=== PATIENT | male | born 1935 | race Caucasian/White ===

== ENCOUNTER 2024-04-13 21:48 | Inpatient (IN) ==
--- NOTE | 2024-04-13 23:00 | CT Scan Report ---
Exam(s): CT HEAD Without Contrast EXAM: CT Head Without Intravenous Contrast CLINICAL HISTORY: Reason for exam: fall chi. TECHNIQUE: Axial computed tomography images of the head/brain without intravenous contrast. CTDI is 35.65 mGy and DLP is 1300.48 mGy-cm. Automated exposure control was utilized for the study. A dose lowering technique was utilized adhering to the principles of ALARA. COMPARISON: No relevant prior studies available. FINDINGS: Brain: No acute intracranial hemorrhage. There is decreased attenuation within the white matter.. Ventricles: There is prominence of the ventricular system with deepening the sulci consistent with cortical and central atrophy.. Bones: No skull fracture is seen.. Soft tissues: There is soft tissue swelling. There is subcutaneous emphysema. Sinuses: Unremarkable as visualized. No acute sinusitis. Mastoid air cells: Unremarkable as visualized. No mastoid effusion. IMPRESSION: Atrophy. Nonspecific white matter disease. Soft tissues: There is soft tissue swelling. There is subcutaneous emphysema. Electronically signed by: Carlos Will MD 04/13/24 22:59 PM
--- NOTE | 2024-04-13 23:08 | CT Scan Report ---
Exam(s): CT FACIAL Without Contrast EXAM: CT Maxillofacial Without Intravenous Contrast CLINICAL HISTORY: Reason for exam: fall chi. TECHNIQUE: Axial computed tomography images of the face without intravenous contrast. CTDI is 35.65 mGy and DLP is 1300.48 mGy-cm. Automated exposure control was utilized for the study. A dose lowering technique was utilized adhering to the principles of ALARA. COMPARISON: No relevant prior studies available. FINDINGS: Bones/joints: There are comminuted fractures through anterior, lateral and medial gunderson of the right maxillary sinus. There are fractures noted of the medial and lateral gunderson of the left maxillary sinus. There are fractures noted through the anterior gunderson of the frontal sinuses. There are fractures through the medial gunderson of the orbits. There is a fracture of the floor of the right orbit. There is a fracture of the nasal septum. There is a fracture of the left pterygoid plate. Orbits: There are some intraorbital emphysema bilaterally. Soft tissues: There is soft tissue swelling. There is subcutaneous emphysema Sinuses: There are air-fluid levels noted in the maxillary sinuses. There is partial opacification of the ethmoid and frontal sinuses. These findings appear related to hemorrhage. IMPRESSION: There are fractures of the facial bones, as described above. Electronically signed by: Carlos Will MD 04/13/24 23:07 PM
[2024-04-13] MEDS: MoRPHine SULFATE 4 MG/ML 1 ML CARP\\VIAL IV STA (23:22)
--- NOTE | 2024-04-13 23:22 | CT Scan Report ---
Exam(s): CT C SPINE EXAM: CT Cervical Spine Without Intravenous Contrast CLINICAL HISTORY: Reason for exam: fall chi. TECHNIQUE: Axial computed tomography images of the cervical spine without intravenous contrast. CTDI is 35.65 mGy and DLP is 1300.48 mGy-cm. Automated exposure control was utilized for the study. A dose lowering technique was utilized adhering to the principles of ALARA. COMPARISON: No relevant prior studies available. FINDINGS: Vertebrae: There is straightening of the normal cervical lordosis. No acute fracture. There are hypertrophic degenerative changes with degenerative posterior osteophytes. There is a fusion noted at C5-6. There is a partial fusion noted at C3-4. There is osteopenia. Discs/spinal canal/neural foramina: There is diffuse disc space narrowing. No significant disc protrusion is seen. Soft tissues: Unremarkable. IMPRESSION: Straightening of the normal cervical lordosis. Hypertrophic degenerative changes with osteopenia. If further evaluation is clinically necessary, consider correlation with MRI. Electronically signed by: Carlos Will MD 04/13/24 23:21 PM
[2024-04-13] MEDS: ONDANSETRON INJ 2 MG/ML 2 ML VIAL IV STA (23:24)
[2024-04-13] MEDS: SODIUM CHLORIDE 0.9% 1,000 ML IV SCH (23:38)
[2024-04-13] MEDS: AMPICILLIN/SULBACTAM SOD 3,000 MG/100 ML BAG IV STA (23:38)
--- NOTE | 2024-04-13 23:42 | Emergency Department Note ---
History of Present Illness General Chief complaint: Fall Stated complaint: GLF, Facial Injuries, Jaw Pain, Nose Pain Time Seen by Provider: 04/13/24 22:14 History of Present Illness Provider Complaint: + accidental head injury and + fall Onset (ago): minute(s) (75) Mechanism of Injury: + fall Place: + outdoors Loss of Consciousness: + no Location of injury: + frontal Severity: moderate Maximum Pain Intensity: 7 Current Pain Intensity: 7 Quality: + dull, + aching and + throbbing Radiation: + face Other Injuries: + laceration to face Context: no on aspirin, no on warfarin, no on plavix, no other anticoagulant use or no recent alcohol use Associated symptoms: no confusion, no amnesia, no repetitive questioning, no nausea, no vomiting or no numbness Home Medications Medication Instructions Recorded Confirmed Type candesartan 8 mg tablet 8 mg PO BID 07/01/23 04/14/24 History hydrochlorothiazide 12.5 mg capsule 12.5 mg PO QAM 07/01/23 04/14/24 History atorvastatin 10 mg tablet 10 mg PO HS 11/24/23 04/14/24 History cholecalciferol (vitamin D3) 50 50 mcg PO Q2D 11/24/23 04/14/24 History mcg (2,000 unit) tablet (Vitamin D3) coenzyme Q10 100 mg capsule 100 mg PO Q2D 11/24/23 04/14/24 History (CoQ-10) cyanocobalamin (vitamin B-12) 1,000 mcg PO Q2D 11/24/23 04/14/24 History 1,000 mcg tablet (Vitamin B-12) lutein 20 mg-zeaxanthin 1,000 mcg 1 cap PO Q2D 11/24/23 04/14/24 History capsule magnesium 250 mg tablet 250 mg PO Q2D 11/24/23 04/14/24 History pyridoxine (vitamin B6) 100 mg 100 mg PO Q2D 11/24/23 04/14/24 History tablet (Vitamin B-6) vit C 250 mg-vit E 90 mg-zinc 40 1 tab PO BID 11/24/23 04/14/24 History mg-copper 1 [id number] capsule (PreserVision AREDS-2) ondansetron HCl 8 mg tablet 8 mg PO Q8H PRN nausea and 12/10/23 04/14/24 Rx vomiting #10 tabs acetaminophen 325 mg tablet 325 mg PO UD PRN Pain 01/19/24 04/14/24 History (Tylenol) tamsulosin 0.4 mg capsule (Flomax) 0.4 mg PO QAM 01/19/24 04/14/24 History Allergies Allergy/AdvReac Type Severity Reaction Status Date / Time No Known Allergies Allergy Verified 04/14/24 00:13 Past Med/Surg History Problem List (Updated 04/13/24 @ 23:48 by Noe Schroeder MD) Extensive facial fractures (Acute) H/O right inguinal hernia repair (01/21/24) Right Open Inguinal Hernia Repair with Mesh(Right) - Chilo Paez, Incarcerated right inguinal hernia 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 Paez prior to upcoming procedure on 01/21/24 - pt was ordered Flomax. Neuropathy HTN (hypertension) History of COVID-19 11/2021: mild symptoms, resolved 07/2023 (home test): cough, treated with Paxlovid > symptoms resolved Macular degeneration "stable" Hyperlipidemia Osteoarthritis Cervical pain Mild- full rom Sciatic leg pain Paresthesia of bilateral legs have neuropathy per pt Bradycardia Chronic, baseline HR mid 50s per patient Surgical History Hx of oral surgery (12/10/23) p Right Lower Jaw Excision of Exposed Necrotic Bone(Not Applicable) - Jorge Cruz DMD s Excision/Biopsy of Intense Leukoplakia, Extraction of Teeth #30, 31(Not Applicable) - Jorge Cruz DMD healed per pt History of tonsillectomy History of tooth extraction H/O colonoscopy History of laminectomy Lumbar (Dr. Casillas/Tony) Family History Father Heart disease Mother Stroke Hypertension Other No family history of adverse response to anesthesia Social History Smoking Status: Never smoker Second Hand Exposure: No; Do You Dip or Chew Tobacco: No; Hx Alcohol Use: Yes Alcohol type: wine Alcohol Intake Frequency: 2-4 x/Month Hx Substance Use: No Preferred Language: Filipino Communication Ability: Effective Visual Impairment: No Limitations Plumbing Engineer Required: No Beliefs That Will Affect Care: None marital status: Current Living Situation: Spouse and Other Current Living Situation Comment: [facility] How many Children do You have: 0 Feels Safe at Home: Yes Diet: regular during the past year weight has: remained stable Assistive Devices: None Physical Exam 2 Vital Signs: Vital Signs - 24 hr 04/13/24 21:54 04/13/24 23:00 04/13/24 23:11 Temperature 36.7 C Temperature Source Oral Pulse Rate 83 Pulse Rate [Finger ] 75 Respiratory Rate 17 18 Blood Pressure 153/86 H Blood Pressure [Ri ght Arm] 172/78 H Blood Pressure Vicki n 108 Blood Pressure Vicki n [Right Arm] 109 Pulse Oximetry 92 94 Oxygen Delivery Me thod Room Air Room Air Room Air Sepsis Recent Feve r Within 48 Hours No Sepsis New/Unexpla ined Change in Men higinio Status N/A Sepsis Action Take n by Nursing No Action Required 04/14/24 00:00 Temperature Temperature Source Pulse Rate Pulse Rate [Finger ] 86 Respiratory Rate 16 Blood Pressure Blood Pressure [Ri ght Arm] 167/114 H Blood Pressure Vicki n Blood Pressure Vicki n [Right Arm] 131 Pulse Oximetry 92 Oxygen Delivery Me thod Room Air Sepsis Recent Feve r Within 48 Hours Sepsis New/Unexpla ined Change in Men higinio Status Sepsis Action Take n by Nursing Physical Exam: Physical Exam HENT: Exam performed. - Head: Deformity of his nose laceration to the face swelling of his face. - Mouth/Throat: The oropharynx is clear and moist. No trismus in the jaw. No dental abscesses or uvula swelling. No oropharyngeal exudate or tonsillar abscesses. EYES: Conjunctivae and EOM are normal. Pupils are equal, round, and reactive to light. Right eye exhibits no discharge. Left eye exhibits no discharge. No scleral icterus. Periorbital ecchymosis bilaterally. NECK: Normal range of motion. Neck supple. No JVD present. No spinous process tenderness present. CV: Normal rate, regular rhythm, normal heart sounds and intact distal pulses. There is no peripheral edema. Palpable radial pulses bue. PULM/CHEST: Effort normal and breath sounds normal. No respiratory distress. No stridor. He has no wheezes. He has no rales. - Chest Wall: He exhibits no tenderness. No crepitus bilaterally. ABD: The abdomen is soft.There is no tenderness. There is no rebound, no guarding. MUSC/SKEL: Pelvis stable. No pain on palpation of the pelvis. NEURO: He is alert and oriented to person, place, and time. He has normal strength. No cranial nerve deficit or sensory deficit. Coordination and gait normal. GCS eye subscore is 4. GCS verbal subscore is 5. GCS motor subscore is 6. Cerebellar tests wnl. Course Course 2214: The patient was evaluated in room C1. A complete history and physical exam was performed Cardiac monitoring: An order was placed for continuous cardiac monitoring. The monitor shows a rate of 70 with sinus rhythm interpreted by [place] [id number]: Vital signs stable. CT of the head unremarkable. CT of the facial bones shows extensive maxillary fractures. Discussed the case with Dr. Cruz. He recommends admission to the medicine team IV antibiotics and states he will evaluate the patient in the morning. Patient be admitted to the medicine team. Administered Medications Sodium Chloride (Nss) 1,000 mls @ 80 mls/hr IV .[id number] [facility] Stop: 05/13/24 23:14 Last Admin: 04/13/24 23:38 Dose: 80 mls/hr Documented By: NAVYA Discontinued Medications Gelatin (Gelatin Sponge 12-7mm) Confirm Administered Dose 1 each .ROUTE .STK-MED ONE Stop: 04/14/24 00:16 Last Admin: 04/14/24 00:35 Dose: 1 each Documented By: NAVYA Hydromorphone HCl (Hydromorphone Inj 0.5 Mg/0.5 Ml Syr) 0.5 mg IV NOW STA Stop: 04/13/24 23:44 Last Admin: 04/14/24 00:09 Dose: 0.5 mg Documented By: NAVYA Ampicillin Sodium/Sulbactam Sodium (Unasyn) 3,000 mg in 100 mls @ 200 mls/hr IV NOW STA Stop: 04/13/24 23:39 Last Infusion: 04/14/24 00:08 Dose: Infused Documented By: Admin: 04/13/24 23:38 Dose: 200 mls/hr Documented By: NAVYA Morphine Sulfate (Morphine Sulfate 4 Mg/Ml 1 Ml Carp\\Vial) 2 mg IV NOW STA Stop: 04/13/24 23:11 Last Admin: 04/13/24 23:22 Dose: 2 mg Documented By: NAVYA Ondansetron HCl (Ondansetron Inj 2 Mg/Ml 2 Ml Vial) 4 mg IV NOW STA Stop: 04/13/24 23:11 Last Admin: 04/13/24 23:24 Dose: 4 mg Documented By: NAVYA Medical Decision Making Laboratory Data Attestation: I reviewed the patient's lab results. 04/13/24 23:27 04/13/24 23:27 Lab Results 04/13/24 Range/Units 23:27 WBC 9.24 (4.8-10.8) K/ul RBC 4.03 L (4.70-6.10) M/uL Hgb 12.7 L (14.0-18.0) g/dl Hct 37.3 L (42.0-52.0) % MCV 92.6 (80.0-100.0) fL MCH 31.5 (25.0-34.0) pg MCHC 34.0 (32.0-36.0) g/dL RDW Std Deviation 41.9 (36.4-46.3) fL RDW Coeff of Tom 12.2 (11.5-14.5) % Plt Count 180 (130-400) K/uL MPV 10.1 (9.4-12.4) fL Immature Gran % (Auto) 0.3 % Neut % (Auto) 81.2 % Lymph % (Auto) 7.4 % [place] % (Auto) 10.1 % Eos % (Auto) 0.8 % Baso % (Auto) 0.2 % Neut # (Auto) 7.51 H (1.40-6.50) K/uL Lymph # (Auto) 0.68 L (1.20-3.40) K/uL [place] # (Auto) 0.93 H (0.11-0.59) K/uL Eos # (Auto) 0.07 (0.00-0.50) K/uL Baso # (Auto) 0.02 (0.00-0.20) K/uL Immature Gran # (Auto) 0.03 (0.01-0.20) K/uL PT 10.9 (9.0-12.0) Seconds INR 1.0 (0.9-1.1) APTT 24 (21-31) Seconds PTT Ratio 0.9 Sodium 137 (136-145) mmol/L Potassium 3.8 (3.5-5.1) mmol/L Chloride 102 (98-107) mmol/L Carbon Dioxide 28 (21-32) mmol/L Anion Gap 7 (3-11) BUN 30 H (6-23) mg/dl Creatinine 1.00 (0.6-1.4) mg/dl Est Cr Clr Drug Dosing 53.0 ml/min Est GFR ( Amer) 78.6 ml/min Est GFR (Non-Af Amer) 67.8 ml/min BUN/Creatinine Ratio 30.0 H (10-20) Glucose 136 H (70-99(Fasting)) mg/dl Calcium 9.1 (8.6-10.3) mg/dl Imaging Data Radiologist's Impression: Cervical Spine CT 04/13/24 22:18 Exam(s): CT C SPINE EXAM: CT Cervical Spine Without Intravenous Contrast CLINICAL HISTORY: Reason for exam: fall chi. TECHNIQUE: Axial computed tomography images of the cervical spine without intravenous contrast. CTDI is 35.65 mGy and DLP is 1300.48 mGy-cm. Automated exposure control was utilized for the study. A dose lowering technique was utilized adhering to the principles of ALARA. COMPARISON: No relevant prior studies available. FINDINGS: Vertebrae: There is straightening of the normal cervical lordosis. No acute fracture. There are hypertrophic degenerative changes with degenerative posterior osteophytes. There is a fusion noted at C5-6. There is a partial fusion noted at C3-4. There is osteopenia. Discs/spinal canal/neural foramina: There is diffuse disc space narrowing. No significant disc protrusion is seen. Soft tissues: Unremarkable. IMPRESSION: Straightening of the normal cervical lordosis. Hypertrophic degenerative changes with osteopenia. If further evaluation is clinically necessary, consider correlation with MRI. Electronically signed by: Carlos Will MD 04/13/24 23:[address] 04/13/24 22:18 Exam(s): CT FACIAL Without Contrast EXAM: CT Maxillofacial Without Intravenous Contrast CLINICAL HISTORY: Reason for exam: fall chi. TECHNIQUE: Axial computed tomography images of the face without intravenous contrast. CTDI is 35.65 mGy and DLP is 1300.48 mGy-cm. Automated exposure control was utilized for the study. A dose lowering technique was utilized adhering to the principles of ALARA. COMPARISON: No relevant prior studies available. FINDINGS: Bones/joints: There are comminuted fractures through anterior, lateral and medial gunderson of the right maxillary sinus. There are fractures noted of the medial and lateral gunderson of the left maxillary sinus. There are fractures noted through the anterior gunderson of the frontal sinuses. There are fractures through the medial gunderson of the orbits. There is a fracture of the floor of the right orbit. There is a fracture of the nasal septum. There is a fracture of the left pterygoid plate. Orbits: There are some intraorbital emphysema bilaterally. Soft tissues: There is soft tissue swelling. There is subcutaneous emphysema Sinuses: There are air-fluid levels noted in the maxillary sinuses. There is partial opacification of the ethmoid and frontal sinuses. These findings appear related to hemorrhage. IMPRESSION: There are fractures of the facial bones, as described above. Electronically signed by: Carlos Will MD 04/13/24 23:[address] 04/13/24 22:18 Exam(s): CT HEAD Without Contrast EXAM: CT Head Without Intravenous Contrast CLINICAL HISTORY: Reason for exam: fall chi. TECHNIQUE: Axial computed tomography images of the head/brain without intravenous contrast. CTDI is 35.65 mGy and DLP is 1300.48 mGy-cm. Automated exposure control was utilized for the study. A dose lowering technique was utilized adhering to the principles of ALARA. COMPARISON: No relevant prior studies available. FINDINGS: Brain: No acute intracranial hemorrhage. There is decreased attenuation within the white matter.. Ventricles: There is prominence of the ventricular system with deepening the sulci consistent with cortical and central atrophy.. Bones: No skull fracture is seen.. Soft tissues: There is soft tissue swelling. There is subcutaneous emphysema. Sinuses: Unremarkable as visualized. No acute sinusitis. Mastoid air cells: Unremarkable as visualized. No mastoid effusion. IMPRESSION: Atrophy. Nonspecific white matter disease. Soft tissues: There is soft tissue swelling. There is subcutaneous emphysema. Electronically signed by: Carlos Will MD 04/13/24 22:59 PM [facility] Narrative 2214: The patient was evaluated in room C1. A complete history and physical exam was performed Cardiac monitoring: An order was placed for continuous cardiac monitoring. The monitor shows a rate of 70 with sinus rhythm interpreted by [place] [id number]: Vital signs stable. CT of the head unremarkable. CT of the facial bones shows extensive maxillary fractures. Discussed the case with Dr. Cruz. He recommends admission to the medicine team IV antibiotics and states he will evaluate the patient in the morning. Patient be admitted to the medicine team. Impression & Plan Extensive facial fractures Discharge Plan Visit Data Chief Complaint: Fall Stated Complaint: GLF, Facial Injuries, Jaw Pain, Nose Pain ED Provider: Noe Schroeder Discharge Problem: Extensive facial fractures Patient Disposition: Admitted As Inpatient Forms Stand Alone Forms: [facility] Prescriptions Prescriptions: No Action ondansetron HCl 8 mg tablet 8 mg PO Q8H PRN (Reason: nausea and vomiting) Qty: 10 0RF hydrochlorothiazide 12.5 mg capsule 12.5 mg PO QAM candesartan 8 mg tablet 8 mg PO BID tamsulosin [Flomax] 0.4 mg capsule 0.4 mg PO QAM acetaminophen [Tylenol] 325 mg Tablet 325 mg PO UD PRN (Reason: Pain) atorvastatin 10 mg Tablet 10 mg PO HS cyanocobalamin (vitamin B-12) [Vitamin B-12] 1,000 mcg Tablet 1,000 mcg PO Q2D magnesium 250 mg Tablet 250 mg PO Q2D pyridoxine (vitamin B6) [Vitamin B-6] 100 mg Tablet 100 mg PO Q2D coenzyme Q10 [CoQ-10] 100 mg Capsule 100 mg PO Q2D cholecalciferol (vitamin D3) [Vitamin D3] 50 mcg (2,000 unit) Tablet 50 mcg PO Q2D PreserVision AREDS-2 250-90-40-1 mg Capsule 1 tab PO BID lutein-zeaxanthin 20 mg- 1,000 mcg Capsule 1 cap PO Q2D Referrals Referrals: Fernanda Atkinson [Primary Care Provider] - Discharge Problem: Extensive facial fractures Qualifiers: Encounter type: initial encounter Fracture type: open Qualified Code(s): S 02.92XB - Unspecified fracture of facial bones, initial encounter for open fracture
[2024-04-13 23:51] LABS: Basophils # (auto) 0.02 K/uL (0.00-0.20); Basophils % (auto) 0.2 %; Eosinophils # (auto) 0.07 K/uL (0.00-0.50); Eosinophils % (auto) 0.8 %; Hematocrit (blood only) 37.3 % (42.0-52.0); Hemoglobin 12.7 g/dl (14.0-18.0); Immature Granulocytes # (auto) 0.03 K/uL (0.01-0.20); Immature Granulocytes % (auto) 0.3 %; Lymphocytes # (auto) 0.68 K/uL (1.20-3.40); Lymphocytes % (auto) 7.4 %; Mean Corpuscular Hemoglobin 31.5 pg (25.0-34.0); Mean Corpuscular Volume 92.6 fL (80.0-100.0); Mean Platelet Volume 10.1 fL (9.4-12.4); Monocytes # (auto) 0.93 K/uL (0.11-0.59); Monocytes % (auto) 10.1 %; Neutrophils # (auto) 7.51 K/uL (1.40-6.50); Neutrophils % (auto) 81.2 %; Platelet Count 180 K/uL (130-400); RDW Coefficient of Variation 12.2 % (11.5-14.5); RDW Standard Deviation 41.9 fL (36.4-46.3); Red Blood Count 4.03 M/uL (4.70-6.10); White Blood Count 9.24 K/ul (4.8-10.8)
[2024-04-14 00:07] LABS: Calcium 9.1 mg/dl (8.6-10.3); Est GFR (African American) 78.6 ml/min; Est GFR (Non-African American) 67.8 ml/min; Potassium 3.8 mmol/L (3.5-5.1)
[2024-04-14] MEDS: HYDROmorphone INJ 0.5 MG/0.5 ML SYR IV STA (00:09)
--- NOTE | 2024-04-14 00:09 | History & Physical Report ---
Date of Service April 14, 2024 Assessment & Plan (1) Extensive facial fractures: Plan: - Extensive facial fracture - No airway compromise at present - Dr. Cruz to see patient qAM - plan to continue Unasyn - ice - Tylenol IV 1000mg prn - noted desaturations with opioids -> give cautiously moving forward - NPO -> would not tolerate PO with extensive swelling, also pending surgery eval - continue NSS @80ml/hr while NPO (2) Hypoxia: Plan: - noted after opioid administration - spO2 to high 80s-> quickly recovering to 90s - challenging supplementation oxygen options due to extension facial fracture-> spO2 in the 90s now but reached out to RT to consider options if continued desaturations (3) Hypertension: Plan: - Unable to tolerate PO - home blood pressure medications held - blood pressure is currently well controlled, but if needed would consider adding prn hydralazine (4) Anemia: Plan: - Hgb= 12.7, baseline of 13 - some blood loss with epistaxis-> no acute hemorrhage - add type and screen, plan to trend Hgb Plan Code: Full Diet: NPO VTE Prophylaxis: SCD, concern for acute bleeding/possible surgery hold chemical Dispo:Tele History of Present Illness Primary Care Provider: [facility] 88 year old male with a past medical history of HTN, Arthritis presenting with facial fracture after fall. Was walking and tripped on curb. Denies LOC. Not on any blood thinners. Denies lightheadedness/dizziness prior to fall. In independent living at [facility]. Notes pain and swelling in face. Denies swelling in throat. Epistaxis has improved. ED Course significant for: Head CT without acute intracranial pathology.CT Cervical spine without acute pathology. CT face with extensive facial fractures. ED spoke with Dr. Cruz who will see the patient in the morning- was started on unasyn. Allergies Allergy/AdvReac Type Severity Reaction Status Date / Time No Known Allergies Allergy Verified 04/14/24 00:13 Home Medications Medication Instructions Recorded Confirmed Type candesartan 8 mg tablet 8 mg PO BID 07/01/23 04/14/24 History hydrochlorothiazide 12.5 mg capsule 12.5 mg PO QAM 07/01/23 04/14/24 History atorvastatin 10 mg tablet 10 mg PO HS 11/24/23 04/14/24 History cholecalciferol (vitamin D3) 50 50 mcg PO Q2D 11/24/23 04/14/24 History mcg (2,000 unit) tablet (Vitamin D3) coenzyme Q10 100 mg capsule 100 mg PO Q2D 11/24/23 04/14/24 History (CoQ-10) cyanocobalamin (vitamin B-12) 1,000 mcg PO Q2D 11/24/23 04/14/24 History 1,000 mcg tablet (Vitamin B-12) lutein 20 mg-zeaxanthin 1,000 mcg 1 cap PO Q2D 11/24/23 04/14/24 History capsule magnesium 250 mg tablet 250 mg PO Q2D 11/24/23 04/14/24 History pyridoxine (vitamin B6) 100 mg 100 mg PO Q2D 11/24/23 04/14/24 History tablet (Vitamin B-6) vit C 250 mg-vit E 90 mg-zinc 40 1 tab PO BID 11/24/23 04/14/24 History mg-copper 1 [id number] capsule (PreserVision AREDS-2) ondansetron HCl 8 mg tablet 8 mg PO Q8H PRN nausea and 12/10/23 04/14/24 Rx vomiting #10 tabs acetaminophen 325 mg tablet 325 mg PO UD PRN Pain 01/19/24 04/14/24 History (Tylenol) tamsulosin 0.4 mg capsule (Flomax) 0.4 mg PO QAM 01/19/24 04/14/24 History Past Med/Surg History Problem List (Updated 04/14/24 @ 02:19 by Buffy De Guzman DO) Anemia Hypoxia Extensive facial fractures (Acute) H/O right inguinal hernia repair (01/21/24) Right Open Inguinal Hernia Repair with Mesh(Right) - Chilo Paez DO Incarcerated right inguinal hernia 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 Paez prior to upcoming procedure on 01/21/24 - pt was ordered Flomax. Neuropathy HTN (hypertension) History of COVID-19 11/2021: mild symptoms, resolved 07/2023 (home test): cough, treated with Paxlovid > symptoms resolved Macular degeneration "stable" Hyperlipidemia Osteoarthritis Cervical pain Mild- full rom Sciatic leg pain Paresthesia of bilateral legs have neuropathy per pt Bradycardia Chronic, baseline HR mid 50s per patient Surgical History Hx of oral surgery (12/10/23) p Right Lower Jaw Excision of Exposed Necrotic Bone(Not Applicable) - Jorge Cruz DMD s Excision/Biopsy of Intense Leukoplakia, Extraction of Teeth #30, 31(Not Applicable) - Jorge Cruz DMD healed per pt History of tonsillectomy History of tooth extraction H/O colonoscopy History of laminectomy Lumbar (Dr. Casillas/Tony) Family History Father Heart disease Mother Stroke Hypertension Other No family history of adverse response to anesthesia Social History Smoking Status: Never smoker Second Hand Exposure: No; Do You Dip or Chew Tobacco: No; Hx Alcohol Use: Yes Alcohol type: wine Alcohol Intake Frequency: 2-4 x/Month Hx Substance Use: No Preferred Language: Spanish Communication Ability: Effective Visual Impairment: No Limitations Excavator Operator Required: No Beliefs That Will Affect Care: None marital status: Current Living Situation: Spouse and Other Current Living Situation Comment: [facility] How many Children do You have: 0 Feels Safe at Home: Yes Diet: regular during the past year weight has: remained stable Assistive Devices: None Review of Systems Review of Systems: As per above Physical Exam Physical Exam: Constitutional:no acute distress HEENT: Extensive facial swelling CV: regular rhythm, no murmur appreciated, extremities well-perfused Resp: CTABL, no wheezes/rales/rhonchi appreciated, no increased work of breathing MSK: no gross deformities appreciated Skin: warm, dry, no rash appreciated Neuro: alert, oriented, no focal neurologic deficit appreciated Results & Data Results & Data Vital Signs (Past 12 Hours) Vital Signs Temp Pulse Pulse Resp BP BP Pulse Ox 04/14/24 00:00 86 16 167/114 H 92 04/13/24 23:11 04/13/24 23:00 75 18 172/78 H 94 04/13/24 21:54 36.7 C 83 17 153/86 H 92 O2 Del Method 04/14/24 00:00 Room Air 04/13/24 23:11 Room Air 04/13/24 23:00 Room Air 04/13/24 21:54 Room Air Supervising Physician Co-Signing Physician Notes Attending addendum: I have physically seen this patient, have supervised the medical residents activities, and agree with the H&P unless as otherwise noted. Assessment and Plan: Multiple facial fractures/status post ground-level fall- N.p.o. Unasyn 3 g IV every 6 hours Acetaminophen 1 g IV every 8 hours as needed for mild pain or fever Given Dilaudid 0.5 mg IV with improved pain control, but did transiently decrease oxygen saturation NSS at 80 mL/h Consult oral maxillofacial surgery Dr. Cruz Hypoxia- Initially occurred after opiate administration Transiently decreased to upper 80s, with rebound to mid 90s Considerations to use of mask if remain comfortable with facial fractures, versus humidified high flow Hypertension- NPO Hold candesartan, HCTZ Hydralazine 10 mg IV every 4 hours as needed for systolic blood pressure greater than 160 Anemia- Hemoglobin 12.7, with base 13.6 Some blood loss via epistaxis Type and screen ordered, but not likely to the transfusion Follow serially Resident Activity Tracking Resident Involvement: Resident Care Provided Care Provided: Adult Hospital Medicine (1) Extensive facial fractures Encounter type: initial encounter Fracture type: open Qualified Code(s): S02.92XB - Unspecified fracture of facial bones, initial encounter for open fracture
[2024-04-14 00:26] LABS: Partial Thromboplastin Ratio 0.9; Partial Thromboplastin Time 24 Seconds (21-31); Prothrombin Time 10.9 Seconds (9.0-12.0)
[2024-04-14] MEDS: GELATIN SPONGE 12-7MM ONE (00:35)
[2024-04-14] MEDS: ACETAMINOPHEN 1,000 MG/100 ML VIAL IV STA (01:28)
[2024-04-14] MEDS ORDERED: hydrALAZINE HCL 20 MG/ML VIAL IV PRN (05:43)
--- NOTE | 2024-04-14 05:45 | Billing Data ---
Date of Service April 14, 2024 Coding Level of Care Code 62360 INT INP/OBS CARE
[2024-04-14] MEDS: AMPICILLIN/SULBACTAM SOD 3,000 MG/100 ML BAG IV SCH (06:11)
[2024-04-14 06:22] LABS: Basophils # (auto) 0.03 K/uL (0.00-0.20); Basophils % (auto) 0.3 %; Hemoglobin 11.7 g/dl (14.0-18.0); Immature Granulocytes # (auto) 0.05 K/uL (0.01-0.20); Immature Granulocytes % (auto) 0.5 %; Lymphocytes # (auto) 0.75 K/uL (1.20-3.40); Mean Corpuscular Hemoglobin 31.5 pg (25.0-34.0); Mean Corpuscular Hgb Conc 33.4 g/dL (32.0-36.0); Mean Corpuscular Volume 94.1 fL (80.0-100.0); Monocytes # (auto) 0.88 K/uL (0.11-0.59); Monocytes % (auto) 9.4 %; Neutrophils # (auto) 7.69 K/uL (1.40-6.50); Neutrophils % (auto) 81.8 %; Platelet Count 161 K/uL (130-400); RDW Coefficient of Variation 12.2 % (11.5-14.5); RDW Standard Deviation 42.5 fL (36.4-46.3); Red Blood Count 3.72 M/uL (4.70-6.10)
[2024-04-14 06:37] LABS: BUN Creatinine Ratio 27.8 (10-20); Calcium 8.6 mg/dl (8.6-10.3); Creatinine Clr Calc Pharmacy 54.7 ml/min; Est GFR (African American) 81.6 ml/min; Est GFR (Non-African American) 70.4 ml/min; Potassium 3.9 mmol/L (3.5-5.1)
[2024-04-14] MEDS: ACETAMINOPHEN 1,000 MG/100 ML VIAL IV PRN (08:10)
--- NOTE | 2024-04-14 08:21 | Hospitalist Progress Note ---
Date of Service April 14, 2024 Assessment & Plan (1) Extensive facial fractures: Plan: - s/p fall, no LOC, not on blood thinners - No airway compromise on exam - Continue Unasyn - pain control with ice and scheduled Tylenol, and [place] prn - noted desaturations with opioids on admission (Dilaudid and Morphine), give cautiously moving forward - advancing to clear liquid diet; can advance to full liquid as tolerated - tetanus vaccine ordered 04/14/24 - Dr. Cruz/ OM surgery following - surgical fixation 04/17/24 - type and screen ordered, CXR ordered (2) Hypoxia: Plan: - resolved - noted after opioid administration on admission - challenging supplementation oxygen options due to extension facial fracture - RT saw patient 04/13 to assist face tent set up - patient now on RA with good O2 stats (3) Hypertension: Plan: - home blood pressure medications held on admission due to swelling - pt unable to tolerate PO - blood pressure is currently well controlled - will continue to hold candesartan and HCl (4) Anemia: Plan: - Hgb = 11.7, baseline of 13 - expect decreased hgb with IV fluids - some blood loss with epistaxis-> no acute hemorrhage - type and screen ordered but likely will not need transfusion - continue to trend Hgb Plan Code: Full Diet: Clears and Full liquid VTE Prophylaxis: SCD, concern for acute bleeding/possible surgery hold chemical Chronic stable diagnoses: Bradycardia: chronic, B/L HR in mid 50s Admission and Anticipated Discharge Date Admission Date: April 14, 2024 Supervising Physician Co-Signing Physician Notes Attending Attestation & Progress Note: Pt seen/examined, chart reviewed, care plan d/w MILY Gracia. I agree w/ the wilson components of her documentation with the following additions - * left knee pain s/p fall Pt requests that his pain med be made oral. He also asks to take his Preservision vitamins and "MacuHealth" supplement from home. He also mentions that he took flomax around the time of his inguinal hernia repair this summer due to prior issues with urinary retention following a previous surgery. c/o facial pain. denies dyspnea. only other pain is that of mild left knee pain and mild swelling of the left hand s/p fall. exam: gen - sitting in bed comfortably, pleasant eyes - EOMI, traumatic subconjunctival hemorrhages b/l face - EXTENSIVE swelling, edema, and ecchymoses of numerous locations of the face extending from the high forehead to the jaw nose - packing present R nare, blood oozing from nare mouth - MMM, extensive ecchymoses oral cavity neck - no JVD heart - RRR, s1 s2 lungs - CTA b/l abd - soft NT ND BS+ musculo - left knee with mild swelling, no pain with passive ROM, minimal tenderness of the L knee to palpation; left hand dorsum - swelling present but NO metacarpal pain, no finger pain, no wrist pain to palpation ext - pulses 2+ b/l feet A/P: 1. fall with resulting head injury and extensive facial fractures 2. bleeding in multiple sinuses 2nd to #1 3. no evidence of extraocular muscle injury b/l 4. left knee swelling/pain s/p fall 5. left hand contusion at his request will change norco tabs to lortab elixir order Preservision & MacuHealth supplements plan for L knee x-rays in am ice prn for face & L knee appreciate Dr Cruz's excellent consultation; surgery tentatively planned for 04/17 cxr in light of recent hypoxia - r/o aspiration, but clinically on exam no evidence of such check a 25-OH vit D level miralax, etc for bowel maintenance updated at bedside Phillip Wright MD Subjective Patient doing well overnight. O2 stats have been trending well. Patient seen at bedside with his . He stated that he cannot breath through his nose but is breath well through his mouth. He denies dyspnea, lightheadedness, and dizziness. His main complaint is of pain; currently a 5/10. Waiting to be seen by Dr. Cruz for potential surgical management. Patient's unsure of his last tetanus vaccine, agreeable to ppx vaccination at this time. Review of Systems Review of Systems: See HPI Physical Exam Physical Exam: The patient is awake, alert and oriented 3, in no acute distress. HEENT- Hearing grossly intact. Diffuse ecchymosis with with dressings around nose saturated with blood. Heart-normal S1 and S2. No murmurs, rubs or gallops. Lungs-clear bilaterally, no respiratory distress, no accessory muscle use. Breathing through mouth, no hypoxic. Abdomen-normal bowel sounds and soft. No ascites noted. Non-tender. Extremities- no clubbing, cyanosis, or edema. Results & Data Results & Data Vital Signs (Past 12 Hours) Vital Signs Temp Pulse Pulse Resp BP BP Pulse Ox 04/14/24 07:56 36.8 C 79 20 155/79 H 93 04/14/24 07:32 68 04/14/24 03:36 63 04/14/24 03:19 36.6 C 74 20 161/78 H 93 04/14/24 02:57 89 17 98 04/14/24 01:00 62 16 133/64 93 04/14/24 00:00 86 16 167/114 H 92 04/13/24 23:11 04/13/24 23:00 75 18 172/78 H 94 04/13/24 21:54 36.7 C 83 17 153/86 H 92 O2 Del Method O2 Flow Rate FiO2 04/14/24 07:56 Room Air 04/14/24 07:32 04/14/24 03:36 04/14/24 03:19 Room Air 04/14/24 02:57 Face Tent 6 28 04/14/24 01:00 Room Air 04/14/24 00:00 Room Air 04/13/24 23:11 Room Air 04/13/24 23:00 Room Air 04/13/24 21:54 Room Air PG Care Time/CCT Total # of Minutes Spent Total Time Spent with Patient: Total time spent is greater than 50% in coordination of care (as documented) at patient's floor/unit and/or counseling patient: Coding Level of Care Code None Diagnoses Extensive facial fractures S02.92XB Encounter type: initial encounter Fracture type: open Hypoxia R09.02 Hypertension I10 Anemia D64.9 (1) Extensive facial fractures Encounter type: initial encounter Fracture type: open Qualified Code(s): S02.92XB - Unspecified fracture of facial bones, initial encounter for open fracture
[2024-04-14] MEDS: DIPHTHER/TETAN/PERTUS Vaccine (Tdap, Adol/Adult) 0.5mL IM ONE (10:40)
--- NOTE | 2024-04-14 14:11 | Oral/Maxillofacial Consult ---
Date of Consultation April 14, 2024 Assessment & Plan (1) Lefort ii fracture, initial encounter for open fracture: (2) Extensive facial fractures: (3) Traumatic ecchymosis of face: (4) Malocclusion: (5) Orbital floor fracture: History of Present Illness Attending Physician: Phillip Wright MD History of Present Illness LeFort II ICD10 S02.412 CPT [id number] 88 year old male with a past medical history of HTN and Arthritis presenting with facial fracture after fall. Was walking and tripped on curb. Denies LOC. Not on any blood thinners. Denies lightheadedness/dizziness prior to fall. In independent living at [facility]. Notes pain and swelling in face. Denies swelling in throat. Epistaxis has improved. My bite is off, very swollen midface ED Course significant for: Head CT without acute intracranial pathology. CT Cervical spine without acute pathology. CT face with extensive facial fractures LeFort II with maxillary and nasal- frontal suture . I was called last night and reviewed the CT with ER staff Alec in the early afternoon. He is started on Unasyn. Pre-surgery Plans Not ready for surgery due to massive swelling Will allow clear and full liquids NOW and tomorrow I will see again Wednesday AM Suggested Oral care tooth brushing if possible Peridex mouthrinse. I interpreted the CT myself Dr Cruz`s IMPRESSION: 1. Extensive acute displaced bilateral facial fractures,involvement of the pterygoid plates. The findings suggest a LeFort type II pattern. Fractures involve the gunderson of the maxillary sinuses, nasal septum, nasal bones-frontal bones right orbital floor and lateral wall of the right/left orbit and sinus gunderson medical, lateral. 2. Significant facial contusions. Globes intact. Small amount of hemorrhage within the inferior right orbit. No large retrobulbar hematoma. 3. Hemorrhage within the sinuses and nasal cavity, 4. Displacement of the maxilla secondary to the LeFort fracture, no cranial involvement, really no frontal sinus involvement just the naso-frontal separation. Maxillofacial exam WednesdayApril 14 at 1 pm I saw Alec April 14 at 1 pm in room 288 bed 2 There is no doubt that he has a LeFort II nasomaxillary fracture with gross displacement of the maxilla. The maxilla is displaced to the left and pushed back, the nasal bones with separation at the naso-frontal suture line. The occlusion is way off with a non functional bite, TMJ function is good. The maxilla is mobile as is the naso-frontal suture line No eye issues other than ecchymoses, good ROM, No double vision no entrapment . Nasal congestion as expected. Plan I will plan on taking Dr Levy to the OR once the swelling subsides given the extreme swelling and ecchymosis. I will also need to secure OR time for an open reduction of the Maxillary fracture with internal plating, there may also be a need for max/joel fixation to help limit jaw movement for a few weeks depending on the stability after the direct fixation is place. Lefort oral incision to reduce the right buttress, piriform rim, possible plates left maxilla Possible open reduction of the right infraorbital rim Superior stabilization via a nasal-frontal midline incision to allow platting of the nasal-frontal separation. Once the dentition is addressed and stabilized the infraorbital and naso-frontal may not require any addition stabilization. I reviewed the surgery with Jg and his Head/Neck exam: Neck is supple, FROM, Able to extend and flex neck w/o difficulty, no masses, no abnormalities, no airway issues, Treatment Plan: Plan open reduction of nasomaxillary ( Lefort II ) fracture with direct plate fixation Set up with general anesthesia in hospital due to complexity of the procedure I reviewed the treatment plan and consent with the patient and his Understanding was expressed. Time was given for questions regarding the surgery, risks and post op care. Discussed alternative to treatment--procedure as planned, Do not do surgery--this is not an option secondary to a non functional occlusion and unstable maxilla Plan for --open reduction of the Maxillary LeFort II fracture with internal plating, there may also be a need for max/joel fixation to help limit jaw movement for a few weeks depending on the stability after the direct fixation is place. I will see Alec tomorrow and determine if the swelling has decreased to allow the surgery given that open reduction of the right infraorbital and Nasofrontal approach with the oral approach is needed. Risks discussed: Bleeding,Pain,swelling,infection, delayed healing, nerve injury to face,lips,tongue,chin area which could be permanent (rare). Numbness, change in bite, diet, follow up TMJ, jaw stiffness, change in bite, ear pain (referred). Sinus problems like fistula or infection. Malunion, plate and sinus infection, bleeding. Need for jaw fixation Surgery to be set up once medically cleared and swelling and ecchymosis subsides Open reduction LeFort II fracture with multiply approaches. Will see tomorrow and plan accordingly Hopefully Wednesday or Wednesday I will be able to do the open reduction Allergies Allergy/AdvReac Type Severity Reaction Status Date / Time No Known Allergies Allergy Verified 04/14/24 00:13 Home Medications Medication Instructions Recorded Confirmed Type candesartan 8 mg tablet 8 mg PO BID 07/01/23 04/14/24 History hydrochlorothiazide 12.5 mg capsule 12.5 mg PO QAM 07/01/23 04/14/24 History atorvastatin 10 mg tablet 10 mg PO HS 11/24/23 04/14/24 History cholecalciferol (vitamin D3) 50 50 mcg PO Q2D 11/24/23 04/14/24 History mcg (2,000 unit) tablet (Vitamin D3) coenzyme Q10 100 mg capsule 100 mg PO Q2D 11/24/23 04/14/24 History (CoQ-10) cyanocobalamin (vitamin B-12) 1,000 mcg PO Q2D 11/24/23 04/14/24 History 1,000 mcg tablet (Vitamin B-12) lutein 20 mg-zeaxanthin 1,000 mcg 1 cap PO Q2D 11/24/23 04/14/24 History capsule magnesium 250 mg tablet 250 mg PO Q2D 11/24/23 04/14/24 History pyridoxine (vitamin B6) 100 mg 100 mg PO Q2D 11/24/23 04/14/24 History tablet (Vitamin B-6) vit C 250 mg-vit E 90 mg-zinc 40 1 tab PO BID 11/24/23 04/14/24 History mg-copper 1 [id number]-aoliil capsule (PreserVision AREDS-2) ondansetron HCl 8 mg tablet 8 mg PO Q8H PRN nausea and 12/10/23 04/14/24 Rx vomiting #10 tabs acetaminophen 325 mg tablet 325 mg PO UD PRN Pain 01/19/24 04/14/24 History (Tylenol) tamsulosin 0.4 mg capsule (Flomax) 0.4 mg PO QAM 01/19/24 04/14/24 History Patient History Medical History History of anesthesia reaction with oral surgery 12/10/23 - urinary shut down/required cath...pt discussed with Dr. Paez prior to upcoming procedure on 01/21/24 - pt was ordered Flomax. Neuropathy HTN (hypertension) History of COVID-19 11/2021: mild symptoms, resolved 07/2023 (home test): cough, treated with Paxlovid > symptoms resolved Macular degeneration "stable" Hyperlipidemia Osteoarthritis Cervical pain Mild- full rom Sciatic leg pain Paresthesia of bilateral legs have neuropathy per pt Bradycardia Chronic, baseline HR mid 50s per patient Surgical History Hx of oral surgery (12/10/23) p Right Lower Jaw Excision of Exposed Necrotic Bone(Not Applicable) - Jorge Cruz DMD s Excision/Biopsy of Intense Leukoplakia, Extraction of Teeth #30, 31(Not Applicable) - Jorge Cruz DMD healed per pt History of tonsillectomy History of tooth extraction H/O colonoscopy History of laminectomy Lumbar (Dr. Casillas/Tony) Family History Father Heart disease Mother Stroke Hypertension Other No family history of adverse response to anesthesia Social History Smoking Status: Former smoker Second Hand Exposure: No; Do You Dip or Chew Tobacco: No; Hx Alcohol Use: No Hx Substance Use: No Preferred Language: Tamazight Communication Ability: Effective Visual Impairment: No Limitations Investigative Shopper Required: No Beliefs That Will Affect Care: None marital status: Current Living Situation: Spouse Current Living Situation Comment: lives with at [facility] How many Children do You have: 0 Feels Safe at Home: Yes Safety Concerns: Feels Safe At This Time Diet: regular during the past year weight has: remained stable Assistive Devices: Glasses Results & Data Vital Signs (Past 12 Hours) Vital Signs Temp Pulse Pulse Resp BP Pulse Ox O2 Del Method 04/14/24 12:12 36.5 C 75 18 132/77 Room Air 04/14/24 07:56 36.8 C 79 20 155/79 H 93 Room Air 04/14/24 07:32 68 04/14/24 03:36 63 04/14/24 03:19 36.6 C 74 20 161/78 H 93 Room Air 04/14/24 02:57 89 17 98 Face Tent O2 Flow Rate FiO2 04/14/24 12:12 04/14/24 07:56 04/14/24 07:32 04/14/24 03:36 04/14/24 03:19 04/14/24 02:57 6 28 PG Care Time/CCT Total # of Minutes Spent Total Time Spent with Patient: Total time spent is greater than 50% in coordination of care (as documented) at patient's floor/unit and/or counseling patient: Coding Level of Care Code 66380 INT INP/OBS CARE 375MIN Diagnoses Lefort ii fracture, initial encounter for open fracture S02.412B Extensive facial fractures S02.92XB Encounter type: initial encounter Fracture type: open Traumatic ecchymosis of face, initial encounter S00.83XA Encounter type: initial encounter Malocclusion M26.4 Closed fracture of right orbital floor, initial encounter S02.31XA Encounter type: initial encounter Fracture type: closed Laterality: right (2) Extensive facial fractures Encounter type: initial encounter Fracture type: open Qualified Code(s): S02.92XB - Unspecified fracture of facial bones, initial encounter for open fracture (3) Traumatic ecchymosis of face Encounter type: initial encounter Qualified Code(s): S00.83XA - Contusion of other part of head, initial encounter (5) Orbital floor fracture Encounter type: initial encounter Fracture type: closed Laterality: right Qualified Code(s): S02.31XA - Fracture of orbital floor, right side, initial encounter for closed fracture
[2024-04-14] MEDS ORDERED: CHLORHEXIDINE GLUCONATE 0.12% 480 ML MT PRN (14:44)
[2024-04-14] MEDS ORDERED: ACETAMINOPHEN 500 MG TAB PO PRN (14:55)
[2024-04-14] MEDS ORDERED: HYDROCODONE/ACETAMOPHEN 5/325MG TAB PO PRN (14:55)
[2024-04-14] MEDS: ACETAMINOPHEN 500 MG TAB PO SCH (16:36)
--- NOTE | 2024-04-14 16:39 | XRay Report ---
TWO VIEW CHEST CLINICAL HISTORY: Preoperative examination. FINDINGS: PA and lateral chest radiographs are obtained. No prior studies are available for compariso n at the time of dictation. The heart is enlarged noting atherosclerotic calcification of the thoraci c aorta. The pulmonary vasculature is noncongested. Nonspecific interstitial thickening is likely chr onic. There is bibasilar scarring/atelectasis. No airspace consolidation or pleural effusion is ident ified. There is no pneumothorax. The skeletal structures are osteopenic. The bony thorax appears inta ct. IMPRESSION: Cardiomegaly with no active disease in the chest. ACT 112: Negative or not required by law. Electronically signed by: Eulogio Chapman M.D. 04/14/2024 4:37 PM
[2024-04-14] MEDS: PRESERVISION AREDS2 SCH (20:37)
[2024-04-14] MEDS: HYDROcodone/APAP 7.5/325mg/15mL ELIX 15 ML/CUP PO PRN (21:53)
[2024-04-15 07:24] LABS: Basophils # (auto) 0.03 K/uL (0.00-0.20); Basophils % (auto) 0.4 %; Eosinophils # (auto) 0.04 K/uL (0.00-0.50); Eosinophils % (auto) 0.6 %; Hematocrit (blood only) 34.8 % (42.0-52.0); Hemoglobin 11.2 g/dl (14.0-18.0); Immature Granulocytes # (auto) 0.04 K/uL (0.01-0.20); Immature Granulocytes % (auto) 0.6 %; Lymphocytes # (auto) 0.81 K/uL (1.20-3.40); Lymphocytes % (auto) 11.6 %; Mean Corpuscular Hgb Conc 32.2 g/dL (32.0-36.0); Mean Corpuscular Volume 96.4 fL (80.0-100.0); Mean Platelet Volume 9.9 fL (9.4-12.4); Monocytes # (auto) 0.92 K/uL (0.11-0.59); Monocytes % (auto) 13.2 %; Neutrophils # (auto) 5.13 K/uL (1.40-6.50); Neutrophils % (auto) 73.6 %; Platelet Count 158 K/uL (130-400); RDW Coefficient of Variation 12.5 % (11.5-14.5); Red Blood Count 3.61 M/uL (4.70-6.10); White Blood Count 6.97 K/ul (4.8-10.8)
[2024-04-15 07:47] LABS: BUN Creatinine Ratio 18.9 (10-20); Calcium 8.4 mg/dl (8.6-10.3); Creatinine Clr Calc Pharmacy 58.9 ml/min; Est GFR (African American) 89.3 ml/min; Est GFR (Non-African American) 77.1 ml/min; Potassium 3.6 mmol/L (3.5-5.1)
[2024-04-15] MEDS: SENNA 8.6 MG TAB PO SCH (08:22)
[2024-04-15] MEDS: [UNRECOGNIZED DRUG - REMARK] SCH (08:23)
--- NOTE | 2024-04-15 10:38 | Hospitalist Progress Note ---
Date of Service April 15, 2024 Assessment & Plan (1) Extensive facial fractures: Plan: - s/p fall, no LOC, not on blood thinners - No airway compromise on exam - Continue Unasyn - pain control with ice, scheduled Tylenol, and [place] prn - noted desaturations with opioids on admission (Dilaudid and Morphine), give cautiously moving forward - clear liquid diet; can advance to full liquid as tolerated - some nausea 04/15/24, Zofran PRN, QTC 435 - tetanus vaccine 04/14/24 - Dr. Cruz/ surgery following - Lefort 2 procedure 04/17/24 - type and screen ordered, CXR WNL, order preop ECG Start FLomax now for h/o urinary retention perioperatively with other surgeries (2) Hypertension: Plan: - home blood pressure medications held on admission due to swelling - pt unable to tolerate PO - BP elevation 04/15, will restart home ARB, continue to hold HCTZ with reduced diet - will hold home BP meds prior to surgery 04/17 (3) Anemia: Plan: - Hgb = 11.2, baseline of 13 - likely secondary to hemodilution and recent trauma/epistaxis - some blood loss with epistaxis-> no acute hemorrhage - type and screen ordered but likely will not need transfusion - continue to trend Hgb (4) Vitamin D deficiency: Plan: - Chronic - on 2000 units Vit D Q2D at home - Vit D 22.3 04/15/24 - increased vit D to 2000 units daily (5) Traumatic bursitis: Plan: - s/p mechanical fall resulting in left knee bursitis - xray negative - ice as needed Plan Chronic stable diagnoses: Bradycardia: chronic, B/L HR in mid 50s HLD: resume home atorvastatin Code: Full Diet: Clears VTE Prophylaxis: SCD, concern for acute bleeding/possible surgery hold chemical Dispo: downgrade from telemetry Admission and Anticipated Discharge Date Admission Date: April 14, 2024 Supervising Physician Co-Signing Physician Notes PA Supervision Note: I personally saw and examined the patient. I verified all wilson points and agree with MILY Gracia with the following exceptions and/or additions: S-Pt feels pain in face is improving. He does have left knee and hand pain,swelling. Reports a h/o urinary retention after anesthesia in the past Is able to open his jaw more today and thinks his facial swelling is down O- Vitals reviewed Gen: [AAOx3, NAD] HEENT: [large amount of facial edema, ecchymosis periorbitally and inside OP on hard palate] CV: [Reg rhythm,alissa, no mgr nl S1S2] Pulm: [CTAB no wcr] Ext: left knee with fluctuant prepatellar bursa, no erythema or warmth to the touch; left dorsal hand with ecchymosis, mild edema, FROM of hand and fingers CBC, BMP reviewed Xrays of left hand and left knee reviewed A/P-88 yo male here with mechanical fall and multiple facial fractures Pending OMF surgery on Wednesday. Check preop ECG. Agree with resumption of ARB for HTN. Will start Flomax Subjective Patient is doing well, no acute events overnight. He stated that his pain is improving and he is overall feeling better. He feels as though his pain is well controlled. He did have some nausea this morning with orange juice, denies vomiting. He has been OOB without difficulty, dizziness, or dyspnea. He is having left knee pain and left hand pain. He has not had a bowel movement since admission. He is planning for potential surgery with Dr. Cruz on Wednesday. Patient denies headache, dizziness, lightheadedness, dyspnea, dyspnea on exertion, chest pain, abdominal pain, vomiting, edema, numbness, tingling. His swelling is improving. Tele overnight: Sinus with HR 50's-70's Tele today: Sinus with PACs, HR 60's Review of Systems Review of Systems: See HPI Physical Exam Physical Exam: The patient is awake, alert and oriented 3, in no acute distress. HEENT- Hearing grossly intact. Diffuse ecchymosis with swelling. Heart-normal S1 and S2. No murmurs, rubs or gallops. Lungs-clear bilaterally, no respiratory distress, no accessory muscle use. Breathing through mouth, no hypoxic. Abdomen-normal bowel sounds and soft. No ascites noted. Non-tender. Extremities- no clubbing, cyanosis, or edema. Results & Data Results & Data Vital Signs (Past 12 Hours) Vital Signs Temp Pulse Pulse Resp BP Pulse Ox O2 Del Method 04/15/24 07:37 36.8 C 61 16 138/65 96 Room Air 04/15/24 07:17 55 L 04/15/24 03:48 36.6 C 65 16 139/74 94 Room Air 04/14/24 23:15 37 C 69 18 138/79 95 Room Air Laboratory Results CBC, BMP, Vit D level reviewed PG Care Time/CCT Total # of Minutes Spent Total Time Spent with Patient: Total time spent is greater than 50% in coordination of care (as documented) at patient's floor/unit and/or counseling patient: Coding Level of Care Code None Diagnoses Extensive facial fractures S02.92XB Encounter type: initial encounter Fracture type: open Hypertension I10 Anemia D64.9 Vitamin D deficiency E55.9 Traumatic bursitis M71.50 (1) Extensive facial fractures Encounter type: initial encounter Fracture type: open Qualified Code(s): S02.92XB - Unspecified fracture of facial bones, initial encounter for open fracture
[2024-04-15] MEDS ORDERED: ONDANSETRON INJ 2 MG/ML 2 ML VIAL IV PRN (10:41)
--- NOTE | 2024-04-15 13:05 | XRay Report ---
LEFT HAND 3 VIEWS CLINICAL HISTORY: Left hand pain. FINDINGS: 3 views of the left hand are obtained. No prior studies are available for comparison at the time of dictation. The skeletal structures are osteopenic. There is no radiographic evidence of acut e fracture. There is moderate osteoarthritic change at the first carpometacarpal joint. Milder degene rative change is seen throughout the remainder of the wrist. Chondrocalcinosis is seen involving the triangular fibrocartilage and distal to the radial styloid. There is osteoarthritic change at the fir st metacarpophalangeal joint. Osteoarthritic change is seen throughout the interphalangeal joints, di stal greater than proximal. 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 Mild soft ti ssue swelling suggested in the hand and fingers. IMPRESSION: 1. No acute bony abnormality is identified. 2. Osteopenia and arthritic change as above. Electronically signed by: Eulogio Chapman M.D. 04/15/2024 1:03 PM
--- NOTE | 2024-04-15 13:26 | Oral/Maxillofacial Progress Nt ---
Date of Service April 15, 2024 Assessment & Plan Admission and Anticipated Discharge Date Admission Date: April 14, [address] Levy is doing very well this afternoon 24 hours post massive trauma. The swelling is decreasing very well. No Vision issues, no Double vision, pain on movement or restriction. Oral opening is improved over yesterday. My plan is to do the Open Reduction of mid Face fracture (LeFort II ) in the OR on Wednesday. By that time I will be able to get a better idea as to how extensive the repair will need to be. Now that I can evaluate the eyes better the inferior rim may not need to be addressed. I am planning KLS Toni Hybrid arch bars t establish occlusion , then expose the maxilla and place plates for stability. Depending on the superior stability I may need to place a double y plate at the Nasal - Frontal suture line with an opened approach. Consents will be signed tomorrow. Otherwise he is doing very well and improving. I will advance diet as tolerated. Results & Data Vital Signs (Past 12 Hours) Vital Signs Temp Pulse Pulse Resp BP Pulse Ox O2 Del Method 04/15/24 12:04 36.5 C 64 18 156/81 H 92 Room Air 04/15/24 07:37 36.8 C 61 16 138/65 96 Room Air 04/15/24 07:17 55 L 04/15/24 03:48 36.6 C 65 16 139/74 94 Room Air PG Care Time/CCT Total # of Minutes Spent Total Time Spent with Patient: Total time spent is greater than 50% in coordination of care (as documented) at patient's floor/unit and/or counseling patient: Coding Level of Care Code 24510 SUB INP/OBS CARE 25MIN
--- NOTE | 2024-04-15 14:07 | XRay Report ---
LEFT KNEE 3 VIEWS CLINICAL HISTORY: Left knee pain. FINDINGS: 3 views of the left knee are obtained. No prior studies are available for comparison at the time of dictation. The skeletal structures are osteopenic. No fracture is seen. There is minimal deg enerative joint space narrowing. Patellar enthesophytes are observed. There is no significant joint e ffusion. A calcified fabella is incidentally noted. There is marked prepatellar soft tissue edema. Ad vanced atherosclerotic calcification is noted in the regional arteries. IMPRESSION: Marked prepatellar soft tissue swelling with no acute bony abnormality identified. Electronically signed by: Eulogio Chapman M.D. 04/15/2024 2:04 PM
--- NOTE | 2024-04-15 16:46 | Billing Data ---
Date of Service April 15, 2024 Coding Level of Care Code 46542 SUB INP/OBS CARE
[2024-04-15] MEDS: CHLORHEXIDINE GLUCONATE 0.12% 480 ML MT PRN (18:12)
[2024-04-15] MEDS: POLYETHYLENE (MIRALAX) 17 GM PACK PO PRN (20:15)
--- NOTE | 2024-04-15 20:24 | Billing Data ---
Date of Service April 14, 2024 Coding Level of Care Code 03901 SUB INP/OBS CARE
[2024-04-15] MEDS: LOSARTAN POTASSIUM 25 MG TAB PO SCH (20:53)
[2024-04-15] MEDS: ATORVASTATIN 10 MG TAB PO SCH (20:53)
[2024-04-15] MEDS: TAMSULOSIN HCL 0.4 MG CAP PO SCH (20:53)
[2024-04-16 06:49] LABS: Hematocrit (blood only) 32.1 % (42.0-52.0); Mean Corpuscular Hemoglobin 31.7 pg (25.0-34.0); Mean Corpuscular Hgb Conc 34.3 g/dL (32.0-36.0); Mean Corpuscular Volume 92.5 fL (80.0-100.0); Mean Platelet Volume 10.1 fL (9.4-12.4); Platelet Count 151 K/uL (130-400); RDW Coefficient of Variation 12.3 % (11.5-14.5); RDW Standard Deviation 41.6 fL (36.4-46.3); Red Blood Count 3.47 M/uL (4.70-6.10)
[2024-04-16 06:57] LABS: BUN Creatinine Ratio 20.5 (10-20); Calcium 8.5 mg/dl (8.6-10.3); Creatinine Clr Calc Pharmacy 60.3 ml/min; Est GFR (African American) 90.1 ml/min; Est GFR (Non-African American) 77.8 ml/min; Potassium 3.5 mmol/L (3.5-5.1)
[2024-04-16] MEDS: CHOLECALCIFEROL 25 MCG (1000 UNITS) TAB PO SCH (07:38)
[2024-04-16] MEDS ORDERED: NON-FORMULARY MEDICATION (Lutein-Zeaxanthin 20 mg- 1,000 mcg Capsule) PO SCH (08:00)
[2024-04-16] MEDS ORDERED: TAMSULOSIN HCL 0.4 MG CAP PO SCH (09:00)
[2024-04-16] MEDS: CEROVITE ADV FORMULA TAB PO SCH (09:32)
--- NOTE | 2024-04-16 11:20 | Hospitalist Progress Note ---
Date of Service April 16, 2024 Assessment & Plan (1) Extensive facial fractures: Plan: s/p fall, no LOC, not on blood thinners - No airway compromise on exam - Continue Unasyn - pain control with ice, scheduled Tylenol, and [place] prn - noted desaturations with opioids on admission (Dilaudid and Morphine), give cautiously moving forward - full liquid diet - tetanus vaccine 04/14/24 - Dr. Cruz/ OM surgery following - Lefort 2 procedure 04/17/24 - type and screen ordered, CXR WNL, EKG sinus bradycardia with PACs - Continue Flomax for h/o urinary retention perioperatively with other surgeries - NPO after midnight, hold arb prior to surgery in AM (2) Hypertension: Plan: BP stable - home blood pressure medications held on admission due to swelling - pt unable to tolerate PO - BP elevation 04/15, restarted home ARB, continue to hold HCTZ with reduced diet - will hold home BP meds prior to surgery 04/17 (3) Anemia: Plan: - Hgb decreased on admission, cbc reviewed, hgb = 11.0, baseline of 13 - expect decreased hgb with IV fluids - some blood loss with epistaxis-> no acute hemorrhage - type and screen ordered but likely will not need transfusion - continue to trend Hgb (4) Vitamin D deficiency: Plan: - Chronic - on 2000 units Vit D Q2D at home - Vit D 22.3 04/15/24 - increased vit D to 2000 units daily (5) Traumatic bursitis: Plan: - s/p mechanical fall resulting in left knee bursitis - xray negative - ice as needed Also with left hand contusion, xrays of hand neg for fracture Plan Chronic stable diagnoses: Bradycardia: chronic, B/L HR in mid 50s Code: Full Diet: Full liquid VTE Prophylaxis: SCD, concern for acute bleeding/possible surgery hold chemical Dispo: Med surg Admission and Anticipated Discharge Date Admission Date: April 14, 2024 Supervising Physician Co-Signing Physician Notes MILY Supervision Note: I personally saw and examined the patient. I verified all wilson points and agree with MILY Gracia with the following exceptions and/or additions: S-Pt reports pain in left knee and hand are improved, pain in face is controlled with tylenol. Is moving his bowels and voiding. O- Vitals reviewed Gen: [NAD,AAOx3] HEENT: [periorbital ecchymosis, EOMI, large amount of edema bilat cheeks] CV: [RRR no mgr nl S1S2] Pulm: [CTAB no wcr] Ext: [left knee with patellar bursa swelling but improved from previous, no erythema CBC , BMP, ECG reviewed A/P: fall with resulting head injury and extensive facial fractures -plan for OR tomorrow for surgical repair/stabilization. Continue pain control prn, make NPO after midnight, preop ECG sinus alissa with PACs bleeding in multiple sinuses 2nd to #1 -avoid blood thinners, continue IV Unasyn left knee swelling/pain s/p fall -ice to the are for patellar bursitis from trauma left hand contusion -hand, pain control, no fractures h/o urine retention with anesthesia-started FLomax HTN-hold ARB after tonight's dose, holding home HCTZ Subjective Patient doing well overnight, his swelling is improving. He was OOB and walking halls this morning. His pain is well controlled with Tylenol and ice. He denies nausea. He did have a small bowel movement this morning. He is planning for surgery with Dr. Cruz tomorrow. He did have double vision previously that has since resolved. Patient denies dizziness, lightheadedness, dyspnea, chest pain, abdominal pain, nausea, vomiting. Review of Systems Review of Systems: See HPI Physical Exam Physical Exam: The patient is awake, alert and oriented 3, in no acute distress. HEENT- Hearing grossly intact. Diffuse ecchymosis with swelling. Heart-normal S1 and S2. No murmurs, rubs or gallops. Lungs-clear bilaterally, no respiratory distress, no accessory muscle use. Breathing through mouth, no hypoxic. Abdomen-normal bowel sounds and soft. No ascites noted. Non-tender. Extremities- no clubbing, cyanosis, or edema. Left hand ecchymosis. Swelling of left knee improved. Results & Data Results & Data Vital Signs (Past 12 Hours) Vital Signs Temp Pulse Resp BP Pulse Ox O2 Del Method 04/16/24 10:46 36.7 C 56 L 18 127/70 95 Room Air 04/16/24 08:47 Room Air 04/16/24 07:00 36.8 C 65 16 116/69 96 Room Air 04/16/24 03:40 36.5 C 84 18 153/80 H 94 Room Air 04/15/24 23:32 36.3 C L 68 18 166/77 H 95 Room Air Laboratory Results CBC, BMP reviewed PG Care Time/CCT Total # of Minutes Spent Total Time Spent with Patient: Total time spent is greater than 50% in coordination of care (as documented) at patient's floor/unit and/or counseling patient: Coding Level of Care Code None Diagnoses Extensive facial fractures S02.92XB Encounter type: initial encounter Fracture type: open Hypertension I10 Anemia D64.9 Vitamin D deficiency E55.9 Traumatic bursitis M71.50 (1) Extensive facial fractures Encounter type: initial encounter Fracture type: open Qualified Code(s): S02.92XB - Unspecified fracture of facial bones, initial encounter for open fracture
--- NOTE | 2024-04-16 11:59 | Oral/Maxillofacial Progress Nt ---
Date of Service April 16, 2024 Assessment & Plan Admission and Anticipated Discharge Date Admission Date: April 14, 2024 Subjective Doing much better this AM Swelling is resolving very well No more double vision-vision, range of movement back to normal, no pain, no redness, periorbital edema less Occlusion has improved as teeth now aligned better. Nose swelling less-I will remove the packing tomorrow AM in OR Still unstable mid face at the Lefort II level--open reduction with bone plates needed. Hopefully can do nasal intubation if possible. NPO tonight OR tomorrow Consent signed Results & Data Vital Signs (Past 12 Hours) Vital Signs Temp Pulse Resp BP Pulse Ox O2 Del Method 04/16/24 10:46 36.7 C 56 L 18 127/70 95 Room Air 04/16/24 08:47 Room Air 04/16/24 07:00 36.8 C 65 16 116/69 96 Room Air 04/16/24 03:40 36.5 C 84 18 153/80 H 94 Room Air PG Care Time/CCT Total # of Minutes Spent Total Time Spent with Patient: Total time spent is greater than 50% in coordination of care (as documented) at patient's floor/unit and/or counseling patient: Coding Level of Care Code None
[2024-04-16] MEDS: PRESERVISION AREDS PO SCH (12:47)
[2024-04-16] MEDS: MACUHEALTH PO SCH (12:47)
--- NOTE | 2024-04-16 16:23 | Billing Data ---
Date of Service April 16, 2024 Coding Level of Care Code 64380 SUB INP/OBS CARE
--- NOTE | 2024-04-16 16:43 | Electrocardiogram Report ---
Test Reason : Blood Pressure : */* mmHG Vent. Rate : 55 BPM Atrial Rate : 55 BPM P-R Int : 188 ms QRS Dur : 82 ms QT Int : 444 ms P-R-T Axes : 75 55 49 degrees QTcB Int : 424 ms Sinus bradycardia with Premature atrial complexes Otherwise normal ECG When compared with ECG of 10-Dec-2023 06:12, No significant change was found Confirmed by Josefina Prasad (Mukesh) on 04/16/2024 4:43:09 PM Referred By: Fernanda Atkinson Confirmed By: Josefina Prasad
[2024-04-17 07:23] LABS: Hematocrit (blood only) 33.8 % (42.0-52.0); Hemoglobin 11.1 g/dl (14.0-18.0); Mean Corpuscular Hgb Conc 32.8 g/dL (32.0-36.0); Mean Corpuscular Volume 94.4 fL (80.0-100.0); Mean Platelet Volume 10.4 fL (9.4-12.4); Platelet Count 155 K/uL (130-400); RDW Coefficient of Variation 12.2 % (11.5-14.5); RDW Standard Deviation 42.5 fL (36.4-46.3); Red Blood Count 3.58 M/uL (4.70-6.10); White Blood Count 5.54 K/ul (4.8-10.8)
[2024-04-17 07:42] LABS: BUN Creatinine Ratio 20.7 (10-20); Calcium 8.7 mg/dl (8.6-10.3); Creatinine Clr Calc Pharmacy 60.9 ml/min; Est GFR (African American) 90.6 ml/min; Est GFR (Non-African American) 78.1 ml/min; Potassium 3.6 mmol/L (3.5-5.1)
--- NOTE | 2024-04-17 10:12 | Anesthesiology Consultation ---
Date of Service April 17, 2024 Assessment & Plan Chart Review Chart Review: data entry associate initiated History Surgery Operation Date: 04/17/24 13:10 Proposed Procedures p Paty Lizama II - Jorge Cruz DMD Height/Weight Height: 5 ft 9 in Weight: 72.9 kg Allergies Allergy/AdvReac Type Severity Reaction Status Date / Time No Known Allergies Allergy Verified 04/14/24 00:13 Medications Home Medications Medication Instructions Recorded Confirmed Last Taken candesartan 8 mg tablet 8 mg PO BID 07/01/23 04/14/24 04/14/24 hydrochlorothiazide 12.5 mg capsule 12.5 mg PO QAM 07/01/23 04/14/24 01/20/24 08:00 atorvastatin 10 mg tablet 10 mg PO HS 11/24/23 04/14/24 01/20/24 19:00 cholecalciferol (vitamin D3) 50 50 mcg PO Q2D 11/24/23 04/14/24 01/19/24 mcg (2,000 unit) tablet (Vitamin D3) coenzyme Q10 100 mg capsule 100 mg PO Q2D 11/24/23 04/14/24 01/19/24 (CoQ-10) cyanocobalamin (vitamin B-12) 1,000 mcg PO Q2D 11/24/23 04/14/24 01/19/24 1,000 mcg tablet (Vitamin B-12) lutein 20 mg-zeaxanthin 1,000 mcg 1 cap PO Q2D 11/24/23 04/14/24 04/14/24 capsule magnesium 250 mg tablet 250 mg PO Q2D 11/24/23 04/14/24 01/19/24 pyridoxine (vitamin B6) 100 mg 100 mg PO Q2D 11/24/23 04/14/24 01/19/24 tablet (Vitamin B-6) vit C 250 mg-vit E 90 mg-zinc 40 1 tab PO BID 11/24/23 04/14/24 01/19/24 mg-copper 1 qr-adlgnd-hiocdl capsule (PreserVision AREDS-2) ondansetron HCl 8 mg tablet 8 mg PO Q8H PRN nausea and 12/10/23 04/14/24 Unknown vomiting #10 tabs acetaminophen 325 mg tablet 325 mg PO UD PRN Pain 01/19/24 04/14/24 01/20/24 13:00 (Tylenol) tamsulosin 0.4 mg capsule (Flomax) 0.4 mg PO QAM 01/19/24 04/14/24 01/20/24 21:00 Active Medications Generic Name Dose Route Start Last Admin Trade Name Freq PRN Reason Stop Dose Admin Acetaminophen 500 mg 04/14/24 16:00 04/17/24 08:54 Acetaminophen 500 Mg Tab PO 05/14/24 15:59 500 mg Q8H SARAH Administration Hydrocodone Bitart/Acetaminophen 10 ml 04/14/24 18:56 04/15/24 04:05 Hydrocodone/Apap 7.5/325mg/15ml Elix 15 Ml/Cup PO 04/28/24 18:55 10 ml Q6H PRN Administration Pain Atorvastatin Calcium 10 mg 04/15/24 21:00 04/16/24 20:06 Atorvastatin 10 Mg Tab PO 05/15/24 20:59 10 mg HS SARAH Administration Chlorhexidine Gluconate 15 ml 04/15/24 13:31 04/16/24 09:33 Chlorhexidine Gluconate 0.12% 480 Ml MT 05/15/24 13:30 15 ml Q6 PRN Administration Prophylaxis Ampicillin Sodium/Sulbactam Sodium 3,000 mg in 100 mls @ 200 mls/hr 04/14/24 06:00 04/17/24 06:18 Unasyn IV 04/24/24 05:59 Infused Q6H SARAH Infusion Losartan Potassium 25 mg 04/15/24 21:00 04/16/24 20:05 Losartan Potassium 25 Mg Tab PO 05/15/24 20:59 25 mg BID SARAH Administration Preservision Areds-2 1 each 04/16/24 13:00 04/17/24 09:04 : Non-Formulary PO 05/16/24 12:59 Not Given Patient's Own Med DAILY SARAH [facility]: Non- 1 each 04/16/24 13:00 04/17/24 09:04 Formulary Patient's PO 05/16/24 12:59 Not Given Own Med DAILY SARAH Polyethylene Glycol 17 gm 04/14/24 16:50 04/16/24 08:32 Polyethylene (Miralax) 17 Gm Pack PO 05/14/24 16:49 17 gm DAILY PRN Administration Constipation Sennosides 8.6 mg 04/15/24 09:00 04/17/24 08:54 Senna 8.6 Mg Tab PO 05/15/24 08:59 8.6 mg QAM SARAH Administration Tamsulosin HCl 0.4 mg 04/15/24 21:00 04/16/24 20:06 Tamsulosin Hcl 0.4 Mg Cap PO 05/15/24 20:59 0.4 mg HS SARAH Administration Vitamin D 50 mcg 04/16/24 09:00 04/17/24 08:48 Cholecalciferol 25 Mcg (1000 Units) Tab PO 05/16/24 08:59 50 mcg DAILY SARAH Administration Past Medical History Medical History History of anesthesia reaction with oral surgery 12/10/23 - urinary shut down/required cath...pt discussed with Dr. Paez prior to upcoming procedure on 01/21/24 - pt was ordered Flomax. 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 Casillas/Tony) Social History Smoking Status: Former smoker Do You Dip or Chew Tobacco: No Hx Alcohol Use: No Alcohol type: wine alcohol intake frequency: holidays/special occasions only Hx Substance Use: No substance use type: does not use Physical Exam Vital Signs Last Vital Signs Temp 97.7 F 04/17/24 08:31 Pulse 88 04/17/24 08:31 Resp 20 04/17/24 08:31 BP 115/67 04/17/24 08:31 Pulse Ox 94 04/17/24 08:31 O2 Del Method Room Air 04/17/24 09:05 O2 Flow Rate 6 04/14/24 02:57 FiO2 28 04/14/24 02:57 Testing Laboratory Results 04/17/24 06:34 04/17/24 06:34 PT 10.9 Seconds (9.0-12.0) 04/13/24 23:27 INR 1.0 (0.9-1.1) 04/13/24 23: APTT 24 Seconds (21-31) 04/13/24 23:27 Blood Type AB Positive 04/14/24 05:58 Antibody Screen NEGATIVE 04/14/24 05:58 Electrocardiogram Date: 04/15/24 Sinus bradycardia with Premature atrial complexes Otherwise normal ECG When compared with ECG of 10-Dec-2023 06:12, No significant change was found Confirmed by Josefina Prasad ([id number]) on 04/16/2024 4:43:09 PM Chest X-Ray Date: 04/14/24 FINDINGS: PA and lateral chest radiographs are obtained. No prior studies are available for comparison at the time of dictation. The heart is enlarged noting atherosclerotic calcification of the thoracic aorta. The pulmonary vasculature is noncongested. Nonspecific interstitial thickening is likely chronic. There is bibasilar scarring/atelectasis. No airspace consolidation or pleural effusion is identified. There is no pneumothorax. The skeletal structures are osteopenic. The bony thorax appears intact. IMPRESSION: Cardiomegaly with no active disease in the chest. Other Testing CT Face 04/13/24 FINDINGS: Bones/joints: There are comminuted fractures through anterior, lateral and medial gunderson of the right maxillary sinus. There are fractures noted of the medial and lateral gunderson of the left maxillary sinus. There are fractures noted through the anterior gunderson of the frontal sinuses. There are fractures through the medial gunderson of the orbits. There is a fracture of the floor of the right orbit. There is a fracture of the nasal septum. There is a fracture of the left pterygoid plate. Orbits: There are some intraorbital emphysema bilaterally. Soft tissues: There is soft tissue swelling. There is subcutaneous emphysema Sinuses: There are air-fluid levels noted in the maxillary sinuses. There is partial opacification of the ethmoid and frontal sinuses. These findings appear related to hemorrhage. IMPRESSION: There are fractures of the facial bones, as described above.
[2024-04-17] MEDS ORDERED: fentaNYL citrate PF 100 MCG/2 ML VIAL IV PRN (12:46)
[2024-04-17] MEDS ORDERED: ePHEDrine sulfate 50 MG/ML AMP IV PRN (12:46)
[2024-04-17] MEDS ORDERED: ONDANSETRON INJ 2 MG/ML 2 ML VIAL IV PRN (12:46)
[2024-04-17] MEDS ORDERED: ATROPINE SULFATE 0.1 MG/ML 10ML SYR IV PRN (12:46)
[2024-04-17] MEDS ORDERED: fentaNYL citrate PF 100 MCG/2 ML VIAL ONE ×2 (13:12→15:29)
[2024-04-17] MEDS ORDERED: ROCURONIUM BROMIDE 10 MG/ML 5 ML VIAL IV ONE ×2 (13:15→14:20)
[2024-04-17] MEDS ORDERED: LIDOCAINE 2% 2 ML VIAL/AMP(20MG/ML) INFIL ONE (13:15)
[2024-04-17] MEDS ORDERED: SUCCINYLCHOLINE CHLORIDE 20 MG/ML 10 ML VIAL IV ONE (13:15)
[2024-04-17] MEDS ORDERED: PROPOFOL IV EMULSION 10 MG/ML 20 ML VIAL IV ONE (13:15)
--- NOTE | 2024-04-17 13:18 | History & Physical Bridge Note ---
Date of Service April 17, 2024 History & Physical Bridge Note I have examined the patient, reviewed the History & Physical and in the interval since the performance of the History & Physical I have noted the following changes of clinical significance: no changes noted OK for surgery
[2024-04-17] MEDS ORDERED: PHENYLEPHRINE 100MCG/ML 10ML SYR IV ONE (13:50)
[2024-04-17] MEDS: LIDOCAINE 4% INH SOLN 4 ML BTL ONE (14:35)
[2024-04-17] MEDS: EpINEphrine HCL INJ 1 MG/ML 1ML SYRINGE IR ONE (14:35)
[2024-04-17] MEDS ORDERED: PHENYLEPHRINE HCL 10 MG/ML VIAL ONE (15:13)
[2024-04-17] MEDS: BUPIVACAINE/EPINEPHRINE 0.5% 1:200,000 1.8 ML CARP ONE (16:01)
[2024-04-17] MEDS ORDERED: GLYCOPYRROLATE 0.2 MG/ML VIAL ONE ×2 (16:06)
[2024-04-17] MEDS ORDERED: NEOSTIGMINE METHYLSULFATE 1 MG/ML 10ML VIAL ONE (16:06)
[2024-04-17] MEDS: TRIAMCINOLONE ACET 0.1% OINT 15 GM TUBE ONE (16:07)
[2024-04-17] MEDS: BUPIVACAINE/EPINEPHRINE 0.5% MPF 1:200,000 30 ML VIAL ONE (16:11)
[2024-04-17] MEDS: OXYMETAZOLINE 0.05% 30 ML BTL ONE (16:11)
[2024-04-17] MEDS ORDERED: NON-FORMULARY MEDICATION (Coenzyme Q10 [Coq-10] 100 mg Capsule) PO SCH (16:47)
[2024-04-17] MEDS ORDERED: ACETAMINOPHEN 325 MG TAB PO PRN (16:47)
--- NOTE | 2024-04-17 16:51 | Post Operative Brief Note ---
PG Immediate Post Op with CF Date of Surgery April 17, 2024 Pre & Post Diagnosis Operation Date: 04/17/24 13:10 Pre-Op Diagnosis: Facial Fracture Post-Op Diagnosis: Facial Fracture I identified the patient and participated in the time-out.: Yes Procedure Operation Date: 04/17/24 13:10 Actual Procedures p [place] II(Not Applicable) - Jorge Cruz DMD Surgeon Jorge Cruz, [employer] Operator none Estimated Blood Loss 15 Findings Consistent with Post-Op Diagnosis Lefort II with Naso-Frontal separation Specimens Specimen Description: None per surgeon Anesthesia Type General Disposition Accompanied Patient To Recovery: Yes
--- NOTE | 2024-04-17 16:52 | Anesthesiology Progress Note ---
Date of Service April 17, 2024 Anesthesia Post Procedure Vital Signs Vital Signs: Temp Pulse Pulse Resp BP Pulse Ox O2 Del Method 04/17/24 16:45 73 12 151/87 H 98 Oxymask 04/17/24 16:35 89 14 133/72 93 Room Air 04/17/24 16:25 36.6 C 87 16 132/60 98 Oxymask 04/17/24 12:21 36.5 C 83 20 132/73 98 Room Air 04/17/24 09:05 Room Air 04/17/24 08:31 36.5 C 88 20 115/67 94 Room Air 04/17/24 02:34 76 18 138/73 04/16/24 23:22 36.9 C 76 20 163/87 H 95 Room Air 04/16/24 22:24 Room Air O2 Flow Rate 04/17/24 16:45 3 04/17/24 16:35 04/17/24 16:25 4 04/17/24 12:21 04/17/24 09:05 04/17/24 08:31 04/17/24 02:34 04/16/24 23:22 04/16/24 22:24 Pain Intensity Nose: Pain Intensity: 6 Face: Pain Intensity: 2 Transfer of Care Handoff Completed per policy Notes Mental Status: alert / awake / arousable and participated in evaluation Patient Amnestic to Procedure: Yes Nausea / Vomiting: adequately controlled Pain: adequately controlled Airway Patency, RR, SpO2: stable & adequate BP & HR: stable & adequate Hydration State: stable & adequate Anesthetic Complications: no major complications apparent and Pt Satisfied with anesthetic care
--- NOTE | 2024-04-17 17:35 | XRay Report ---
XR mandible <4V CLINICAL HISTORY: Status Post-Op Surgery AP Mandibular and Jaw View COMPARISON: Facial bone CT April 13, 2024. FINDINGS: Internal fixation of multiple acute facial fractures is noted with plate and screws. This includes internal fixation of a frontal bone fracture and maxillary fractures. There are no unexpecte d radiopaque foreign bodies. Dental implants are incidentally noted. There are numerous acute facial fractures, better depicted on the facial bone CT. Alignment of the temporomandibular joints appears a natomic. There are no mandibular fractures. IMPRESSION: Postoperative radiographs demonstrate internal fixation for Lefort type II fracture, as d escribed above. ACT 112: Negative or not required by law. Electronically signed by: Luis Jensen M.D. 04/17/2024 5:33 PM
--- NOTE | 2024-04-17 18:36 | Hospitalist Progress Note ---
Date of Service April 17, 2024 Assessment & Plan (1) Extensive facial fractures: Plan: s/p mechanical fall, no LOC, not on blood thinners , hit face on curb and suffered multiple facial fractures Now s/p LeForte 2 repair on 04/17 Continue Unasyn for prophylaxis given sinus fractures Continue pain control with ice, scheduled Tylenol, and [place] prn COntinue full liquid diet Received tetanus vaccine 04/14/24 Appreciate OMFS management (2) Hypertension: Plan: BP stable COntinue to hold home HCTZ and ARB until ensure BPs not too low and renal function normal post op (3) Anemia: Plan: Hgb decreased on admission, cbc reviewed, hgb = 11.0, baseline of 13 Expect decreased hgb with IV fluids and some blood loss with epistaxis-> no acute hemorrhage Follow CBC (4) Vitamin D deficiency: Plan: Chronic - on 2000 units Vit D Q2D at home Vit D 22.3 04/15/24 Increased vit D to 2000 units daily (5) Traumatic bursitis: Plan: S/p mechanical fall resulting in left knee bursitis xray negative for fracture Continue ice as needed Also with left hand contusion, xrays of hand neg for fracture Plan Chronic stable diagnoses: Bradycardia: chronic, B/L HR in mid 50s , now off tele Code: Full Diet: Full liquid VTE Prophylaxis: SCD, concern for acute bleeding/possible surgery hold chemical Dispo: Med surg Admission and Anticipated Discharge Date Admission Date: April 14, 2024 Subjective Pt just returned from oral surgery and is having a lot of fatigue and pain in face. No CP, SOB, nausea. Has not yet urinated since return from surgery Physical Exam Constitutional: WD/WN, vitals as above ENMT: large amount of edema in cheeks L>>R, periorbital ecchymosis, abrasion nose Respiratory: normal respiratory effort, lungs clear to auscultation Cardiovascular: RRR, no murmur, no edema Gastrointestinal (Abdomen): normal bowel sounds, soft, nontender, no hepatosplenomegaly Psychiatric: A+Ox3, euthymic affect Results & Data Results & Data Vital Signs (Past 12 Hours) Vital Signs Temp Pulse Pulse Resp BP Pulse Ox O2 Del Method 04/17/24 17:57 37.3 C 80 16 157/86 H 91 Room Air 04/17/24 17:15 36.6 C 75 16 146/81 H 97 Oxymask 04/17/24 16:55 36.8 C 69 12 134/82 97 Oxymask 04/17/24 16:45 73 12 151/87 H 98 Oxymask 04/17/24 16:35 89 14 133/72 93 Room Air 04/17/24 16:25 36.6 C 87 16 132/60 98 Oxymask 04/17/24 12:21 36.5 C 83 20 132/73 98 Room Air 04/17/24 09:05 Room Air 04/17/24 08:31 36.5 C 88 20 115/67 94 Room Air O2 Flow Rate 04/17/24 17:57 04/17/24 17:15 4 04/17/24 16:55 3 04/17/24 16:45 3 04/17/24 16:35 04/17/24 16:25 4 04/17/24 12:21 04/17/24 09:05 04/17/24 08:31 Laboratory Results CBC, BMP reviewed PG Care Time/CCT Total # of Minutes Spent Total Time Spent with Patient: Total time spent is greater than 50% in coordination of care (as documented) at patient's floor/unit and/or counseling patient: Coding Level of Care Code 64090 SUB INP/OBS CARE 235MIN Diagnoses Extensive facial fractures S02.92XB Encounter type: initial encounter Fracture type: open Hypertension I10 Anemia D64.9 Vitamin D deficiency E55.9 Traumatic bursitis M71.50 (1) Extensive facial fractures Encounter type: initial encounter Fracture type: open Qualified Code(s): S02.92XB - Unspecified fracture of facial bones, initial encounter for open fracture
[2024-04-18 06:22] LABS: Basophils # (auto) 0.01 K/uL (0.00-0.20); Basophils % (auto) 0.1 %; Hematocrit (blood only) 32.4 % (42.0-52.0); Hemoglobin 10.8 g/dl (14.0-18.0); Immature Granulocytes # (auto) 0.03 K/uL (0.01-0.20); Immature Granulocytes % (auto) 0.4 %; Lymphocytes % (auto) 8.4 %; Mean Corpuscular Hemoglobin 31.8 pg (25.0-34.0); Mean Corpuscular Hgb Conc 33.3 g/dL (32.0-36.0); Mean Corpuscular Volume 95.3 fL (80.0-100.0); Mean Platelet Volume 10.3 fL (9.4-12.4); Neutrophils # (auto) 6.61 K/uL (1.40-6.50); Neutrophils % (auto) 79.1 %; Platelet Count 173 K/uL (130-400); RDW Coefficient of Variation 12.2 % (11.5-14.5); RDW Standard Deviation 42.5 fL (36.4-46.3); White Blood Count 8.35 K/ul (4.8-10.8)
[2024-04-18 06:39] LABS: Calcium 8.4 mg/dl (8.6-10.3); Creatinine Clr Calc Pharmacy 55.2 ml/min; Est GFR (African American) 82.6 ml/min; Est GFR (Non-African American) 71.3 ml/min; Potassium 4.2 mmol/L (3.5-5.1)
--- NOTE | 2024-04-18 07:28 | Hospitalist Progress Note ---
Date of Service April 18, 2024 Assessment & Plan (1) Extensive facial fractures: Plan: s/p mechanical fall, no LOC, not on blood thinners , hit face on curb and suffered multiple facial fractures Now s/p LeForte 2 repair on 04/17 Continue Unasyn for prophylaxis given sinus fractures Continue pain control with ice, scheduled Tylenol, and [place] prn COntinue full liquid diet Received tetanus vaccine 04/14/24 Appreciate OMFS management patient is surgical repair as mentioned he is on liquid diet he has rubber band restriction of his jaw movement (2) Hypertension: Plan: BP stable COntinue to hold home HCTZ and ARB until ensure BPs not too low and renal function normal post op (3) Anemia: Plan: Stable anemia is dilutional and some acute blood loss anemia with epistaxis-> no acute hemorrhage Follow CBC (4) Vitamin D deficiency: Plan: Chronic - on 2000 units Vit D Q2D at home Vit D 22.3 04/15/24 Increased vit D to 2000 units daily (5) Traumatic bursitis: Plan: S/p mechanical fall resulting in left knee bursitis xray negative for fracture Continue ice as needed Also with left hand contusion, xrays of hand neg for fracture Plan Chronic stable diagnoses: Bradycardia: chronic, B/L HR in mid 50s , now off tele Code: Full Diet: Full liquid VTE Prophylaxis: SCD, concern for acute bleeding/possible surgery hold chemical Pt typically resides in personal care in [facility] and PT has cleared to return Admission and Anticipated Discharge Date Admission Date: April 14, 2024 Subjective Patient is in good spirits has bruising to his face and Steri-Strips on the bridge of his nose Patient is tolerating liquid nutrition Physical Exam Physical Exam: He has bruising about his face and he has packing in his nose he has some mild serosanguineous discharge from his nose that he is dabbing off with a tissue He has no stridor breathing is unlabored Lungs are clear bilaterally Results & Data Results & Data Vital Signs (Past 12 Hours) Vital Signs Temp Pulse Pulse Resp BP Pulse Ox O2 Del Method 04/18/24 02:39 86 20 139/66 96 Room Air 04/17/24 23:26 98.8 F 92 H 20 157/79 H 95 Room Air 04/17/24 22:15 71 04/17/24 20:34 Room Air 04/17/24 19:55 99.0 F 76 20 155/66 H 93 Room Air Laboratory Results Reviewed CBC Reviewed chemistry PG Care Time/CCT Total # of Minutes Spent Total Time Spent with Patient: Total time spent is greater than 50% in coordination of care (as documented) at patient's floor/unit and/or counseling patient: Coding Level of Care Code 60582 SUB INP/OBS CARE 2/35MIN Diagnoses Extensive facial fractures S02.92XB Encounter type: initial encounter Fracture type: open Hypertension I10 Anemia D64.9 Vitamin D deficiency E55.9 Traumatic bursitis M71.50 (1) Extensive facial fractures Encounter type: initial encounter Fracture type: open Qualified Code(s): S02.92XB - Unspecified fracture of facial bones, initial encounter for open fracture
[2024-04-18] MEDS: CYANOCOBALAMIN (B-12) 500 MCG TABLET PO SCH (08:35)
[2024-04-18] MEDS: MAGNESIUM OXIDE 400 MG TAB PO SCH (08:36)
[2024-04-18] MEDS: PYRIDOXINE HCL 50 MG TAB PO SCH (08:36)
[2024-04-18] MEDS ORDERED: hydroCHLOROthiazide 25 MG TAB PO SCH (09:00)
[2024-04-18] MEDS ORDERED: METOPROLOL TARTRATE 1 MG/ML VIAL IV PRN (17:54)
[2024-04-18 21:41] VITALS: RESP 18
[2024-04-19 07:13] LABS: BUN Creatinine Ratio 25.3 (10-20); Calcium 8.2 mg/dl (8.6-10.3); Creatinine Clr Calc Pharmacy 60.9 ml/min; Est GFR (African American) 90.6 ml/min; Est GFR (Non-African American) 78.1 ml/min; Magnesium 1.9 mg/dl (1.7-2.4); Potassium 3.7 mmol/L (3.5-5.1)
--- NOTE | 2024-04-19 08:49 | Oral/Maxillofacial Progress Nt ---
Date of Service April 18, 2024 Assessment & Plan Admission and Anticipated Discharge Date Admission Date: April 14, 2024 Subjective Orthognathic surgery post op note at 24 hours Excellent result, ROM improving Sutures good closure Tissue tone, gingival tissue--excellent Occlusion very stable with a reproducible bite. Reviewed use of functional elastics Still a lot of nasal congestion, drainage and slight bleeding, septum well positioned. Still excessive sinus issues with post nasal drip-this will improve over the next 48 hours Facial alignment excellent Reviewed post op care--diet, oral care, use of elastics, activities. At 24 hours I am pleased but would like to see the drainage subside somewhat before discharge Tomorrow I will remove the elastics and show Alec how to place and re place for eating. If continue to do well can consider D/C AM on oral antibiotics and pain meds I will follow in office in 1 week Overall excellent result from recent OG surgery Results & Data Vital Signs (Past 12 Hours) Vital Signs Temp Pulse Pulse Resp BP Pulse Ox O2 Del Method 04/19/24 08:05 Room Air 04/19/24 07:15 36.8 C 83 18 131/71 94 Room Air 04/18/24 23:37 68 04/18/24 21:41 36.9 C 81 18 150/82 H 97 Room Air PG Care Time/CCT Total # of Minutes Spent Total Time Spent with Patient: Total time spent is greater than 50% in coordination of care (as documented) at patient's floor/unit and/or counseling patient: Coding Level of Care Code 88869 SUB INP/OBS CARE 1/25MIN
--- NOTE | 2024-04-19 08:52 | Oral/Maxillofacial Progress Nt ---
Date of Service April 19, 2024 Assessment & Plan Admission and Anticipated Discharge Date Admission Date: April 14, 2024 Subjective Fracture surgery post op note at 48 hours Excellent result, ROM improving Tissue tone, gingival tissue--excellent Occlusion very stable with a reproducible bite. Reviewed use of functional elastics for night use only I removed the elastics and showed Alec how to place and re place for eating. Less nasal congestion, less drainage and no bleeding, septum well positioned. Much less sinus issues with less post nasal drip-this will continue improve over the next 48 hours Facial alignment excellent Reviewed post op care--diet, oral care, use of elastics, activities for anticipated discharge At 48 hours I am pleased with the progress, discussed that getting some increased swelling on the second day very normal OK D/C AM I will order the oral antibiotics and pain Meds I will follow in office in 1 week Overall excellent result from recent OG surgery Results & Data Vital Signs (Past 12 Hours) Vital Signs Temp Pulse Pulse Resp BP Pulse Ox O2 Del Method 04/19/24 08:05 Room Air 04/19/24 07:15 36.8 C 83 18 131/71 94 Room Air 04/18/24 23:37 68 04/18/24 21:41 36.9 C 81 18 150/82 H 97 Room Air PG Care Time/CCT Total # of Minutes Spent Total Time Spent with Patient: Total time spent is greater than 50% in coordination of care (as documented) at patient's floor/unit and/or counseling patient: Coding Level of Care Code None
[2024-04-19] MEDS ORDERED: INFLUENZA VACC TS2024-25(65y+)/PF (IIV3) 0.5mL Syr IM ONE (09:56)
[2024-04-19] MEDS ORDERED: ACETAMINOPHEN 325 MG TAB PO PRN (10:21)
[2024-04-19] MEDS: PNEUMOCOCCAL VACCINE (PCV20) 20-VAL CONJ-DIP CRM/PF 0.5 ML SYR IM ONE (13:37)
[2024-04-19] MEDS: INFLUENZA VACC TS2024-25(65y+)/PF (IIV3) 0.5mL Syr IM ONE (13:40)
--- NOTE | 2024-04-19 18:31 | Hospitalist Progress Note ---
Date of Service April 19, 2024 Assessment & Plan (1) Extensive facial fractures: Plan: s/p mechanical fall, no LOC, not on blood thinners , hit face on curb and suffered multiple facial fractures Now s/p LeForte 2 repair on 04/17 Continue Unasyn for prophylaxis given sinus fractures will transition to po at dc Continue pain control with ice, scheduled Tylenol, and [place] prn tolerated advanced diet Received tetanus vaccine 04/14/24 Appreciate OMFS management patient is surgical repair (2) Hypertension: Plan: BP stable COntinue to hold home HCTZ and ARB until ensure BPs not too low and renal function normal post op (3) Anemia: Plan: Stable anemia is dilutional and some acute blood loss anemia with epistaxis-> no acute hemorrhage Follow CBC (4) Vitamin D deficiency: Plan: Chronic - on 2000 units Vit D Q2D at home Vit D 22.3 04/15/24 Increased vit D to 2000 units daily (5) Traumatic bursitis: Plan: S/p mechanical fall resulting in left knee bursitis xray negative for fracture Continue ice as needed Also with left hand contusion, xrays of hand neg for fracture Plan Chronic stable diagnoses: Bradycardia: chronic, B/L HR in mid 50s , now off tele Code: Full Diet: Full liquid VTE Prophylaxis: SCD, concern for acute bleeding/possible surgery hold chemical Pt typically resides [facility] and PT has cleared to return Admission and Anticipated Discharge Date Admission Date: April 14, 2024 Subjective pt is doing well post op, eating soft foods, pain controlled ambulating well Physical Exam Physical Exam: bruising of face regular heart beat ( did have short run of aflutter pt states has history of same) Results & Data Results & Data Vital Signs (Past 12 Hours) Vital Signs Temp Pulse Pulse Resp BP Pulse Ox O2 Del Method 04/19/24 16:26 98.2 F 63 18 136/64 97 Room Air 04/19/24 14:01 73 04/19/24 09:30 62 04/19/24 08:05 Room Air 04/19/24 07:15 98.2 F 83 18 131/71 94 Room Air Laboratory Results review chemistry PG Care Time/CCT Total # of Minutes Spent Total Time Spent with Patient: Total time spent is greater than 50% in coordination of care (as documented) at patient's floor/unit and/or counseling patient: Coding Level of Care Code 22725 SUB INP/OBS CARE Diagnoses Extensive facial fractures S02.92XB Encounter type: initial encounter Fracture type: open Hypertension I10 Anemia D64.9 Vitamin D deficiency E55.9 Traumatic bursitis M71.50 (1) Extensive facial fractures Encounter type: initial encounter Fracture type: open Qualified Code(s): S02.92XB - Unspecified fracture of facial bones, initial encounter for open fracture
[2024-04-20] MEDS: POTASSIUM CHLORIDE / WTR 10 MEQ/100 ML PLCT IV ONE (01:08)
[2024-04-20] MEDS: MAGNESIUM SULFATE / D5W 1 GM/100 ML BAG IV SCH (01:08)
--- NOTE | 2024-04-20 16:24 | Hospitalist Progress Note ---
Date of Service April 20, 2024 Assessment & Plan (1) Extensive facial fractures: Plan: s/p mechanical fall, no LOC, not on blood thinners , hit face on curb and suffered multiple facial fractures Now s/p LeForte 2 repair on 04/17 Continue Unasyn for prophylaxis given sinus fractures will transition to po augmentin at dc Continue pain control with ice, scheduled Tylenol, and [place] prn tolerated advanced diet Received tetanus vaccine 04/14/24 Appreciate OMFS management patient is surgical repair (2) Hypertension: Plan: BP stable COntinue to hold home HCTZ and ARB until ensure BPs not too low and renal function normal post op (3) Anemia: Plan: Stable anemia is dilutional and some acute blood loss anemia with epistaxis-> no acute hemorrhage Follow CBC (4) Vitamin D deficiency: Plan: Chronic - on 2000 units Vit D Q2D at home Vit D 22.3 04/15/24 Increased vit D to 2000 units daily (5) Arrhythmia: Plan: 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, asymptomatic currently unsustained and the atrial flutter has not returned( perviously pac's) will not consider anti coagualation due to significant facial fractures with fall Plan traumatic bursitis S/p mechanical fall resulting in left knee bursitis xray negative for fracture Continue ice as needed Also with left hand contusion, xrays of hand neg for fracture Code: Full Diet: Full liquid VTE Prophylaxis: SCD, concern for acute bleeding/possible surgery hold chemical Pt typically resides in personal care [facility] and PT has cleared to return Admission and Anticipated Discharge Date Admission Date: April 14, 2024 Subjective pt is doing well post op, eating soft foods, pain controlled ambulating well did have short run of VT, 13 beats, overnight, given magnesium, this disrupted sleep and such pt is not feeling well today Physical Exam Physical Exam: bruising of face regular heart beat , pt has had atrial and ventricular arrhythmia in past Results & Data Results & Data Vital Signs (Past 12 Hours) Vital Signs Temp Pulse Pulse Resp BP Pulse Ox O2 Del Method 04/20/24 15:51 98.1 F 80 18 145/80 H 97 Room Air 04/20/24 12:21 59 L PG Care Time/CCT Total # of Minutes Spent Total Time Spent with Patient: Total time spent is greater than 50% in coordination of care (as documented) at patient's floor/unit and/or counseling patient: Coding Level of Care Code 85868 SUB INP/OBS CARE MIN Diagnoses Extensive facial fractures S02.92XB Encounter type: initial encounter Fracture type: open Hypertension I10 Anemia D64.9 Vitamin D deficiency E55.9 Arrhythmia I49.9 (1) Extensive facial fractures Encounter type: initial encounter Fracture type: open Qualified Code(s): S02.92XB - Unspecified fracture of facial bones, initial encounter for open fracture
[2024-04-20 23:28] VITALS: BP 132/83; TEMP 97.9; O2SAT 94
[2024-04-21] MEDS: AMOXICILLIN/CLAVULANATE 875 MG TAB PO SCH (00:06)
[2024-04-21] MEDS: ADVANCED PROBIOTIC 625 MG CAPSULE PO SCH (00:06)
[2024-04-21 06:18] LABS: Hematocrit (blood only) 31.2 % (42.0-52.0); Hemoglobin 10.4 g/dl (14.0-18.0); Mean Corpuscular Hemoglobin 31.1 pg (25.0-34.0); Mean Corpuscular Hgb Conc 33.3 g/dL (32.0-36.0); Mean Corpuscular Volume 93.4 fL (80.0-100.0); Mean Platelet Volume 10.1 fL (9.4-12.4); Platelet Count 173 K/uL (130-400); RDW Coefficient of Variation 12.4 % (11.5-14.5); RDW Standard Deviation 42.5 fL (36.4-46.3); Red Blood Count 3.34 M/uL (4.70-6.10); White Blood Count 5.71 K/ul (4.8-10.8)
[2024-04-21 06:30] LABS: BUN Creatinine Ratio 27.4 (10-20); Calcium 8.3 mg/dl (8.6-10.3); Creatinine Clr Calc Pharmacy 63.1 ml/min; Magnesium 2.1 mg/dl (1.7-2.4); Potassium 3.6 mmol/L (3.5-5.1)
[2024-04-21 11:29] VITALS: PULSE 87
--- NOTE | 2024-04-21 18:56 | Discharge Summary ---
Discharge Summary Date of Service April 21, 2024 Principal Dx & Hospital Course #1 = Principal Diagnosis (1) Extensive facial fractures: s/p mechanical fall, no LOC, not on blood thinners , hit face on curb and suffered multiple facial fractures Now s/p LeForte 2 repair on 04/17 Continue Unasyn for prophylaxis given sinus fractures, transitioned to po augmentin at dc Continue pain control with ice, scheduled Tylenol, and [place] prn tolerated advanced diet Received tetanus vaccine 04/14/24 Appreciate OMFS management patient is surgical repair (2) Hypertension: BP stable, encouraged to hold BP meds on discharge given stable BPs here without meds. 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 Was walking and tripped on curb. Denies LOC. Not on any blood thinners. Denies lightheadedness/dizziness prior to fall. In independent living at [facility]. Notes pain and swelling in face. Denies swelling in throat. Epistaxis has improved. ED Course significant for: Head CT without acute intracranial pathology.CT Cervical spine without acute pathology. CT face with extensive facial fractures. ED spoke with Dr. Cruz who will see the patient in the morning- was started on unasyn. Discharge Exam bruising of face regular heart beat , pt has had atrial and ventricular arrhythmia in past Discharge Plan Discharge Items Patient Disposition: Home - Self-Care Reason For Visit: FACIAL FRACTURE Discharge Diagnosis: s/p Lefort II Condition on Discharge: Good Activity: Per Instructions section Lifting: No more than 10 pounds Bathing: No limitations Exercise/Sports: Wait until after follow-up appointment Driving/Machine Use: Resume 3 days after discharge Weightbearing: Full weightbearing Non-emergency contact: Surgeon Call non-emergency contact if: you have any medication questions, your symptoms worsen, your pain is not controlled, your temperature is above 101.5, your wound has increased redness, your wound has increased drainage and your wound pain has increased Follow-up/Referrals: Fernanda Atkinson [Primary Care Provider] - Jorge Cruz DMD [Physician] - Diet: Full liquid and Clear liquid Diet Texture: Easy to Chew Diet Comment: clear--full--dental soft Addtl Attending Provider Instructions: GENERAL POST-OPERATIVE INSTRUCTIONS FOR PATIENTS HAVING JAW SURGERY POST-OP INSTRUCTIONS BLEEDING: Will be under control by the time you leave our operating room. Some oozing or blood-tinged saliva may persist for up to 24 hours. Should excessive bleeding occur call the office or Dr. Cruz. Expect nasal oozing for a few days. This also will occur after getting up or after you shower. PAIN: Is best controlled by the medications recommended. They are most effective when taken before the local anesthesia diminishes and normal sensation returns to the area. Do not take pain pills on an empty stomach. Narcotic pain medication such as Vicodin or Percocet may cause nausea, vomiting, drowsiness, dizziness, itching or constipation. If these side effects occur, discontinue the medication. You may take an alternative over the counter pain medication (Tylenol or Motrin) as necessary or call our office for assistance. SWELLING: May occur immediately and increase gradually over 24-48 hours. Swelling from the surgical procedure will maximize at 48-72 hours. Ice packs applied externally to the area at 20 minute intervals throughout the day of surgery may help control swelling, but only use them if advised to by our office. Sleeping with the head of bed elevated above the level of the heart for the first two post-operative nights may tend to lessen swelling. NAUSEA: May result from a general anesthetic or the drugs prescribed for pain. Drinking a small glass of a carbonated beverage will generally control mild nausea. If not controlled, call the office. The Zofran ODT may be used as instructed. DIET: Soft foods and liquids will be required for 24-48 hours following surgery. Avoid hot, spicy foods. Do not smoke. Non-chewy foods are okay if you are using the elastic bands. Follow the instruction about what to eat and how to remove and replace your bands as instructed by Dr. Cruz. ORAL HYGIENE: Should not be neglected. Edwards your teeth as usual and rinse with warm salt water after each meal beginning gently the night of surgery. Use Peridex twice a day. Other mouth rinses can be used to keep your mouth clean. ACTIVITY: Should be restricted to a minimum for the first 7 -10 days. Strenuous work or exercise may promote bleeding. If you have had a general anesthetic or sedation, we must require that you be accompanied home by a responsible adult and an adult stays with you until recovered from the effects of the anesthesia. Under no circumstances are you to drive a car for at least 24 hours. FEVER: After surgery it is normal for the body temperature to be slightly elevated for 24 hours. SIDE EFFECTS: Such as an ear ache, temporary ache of adjacent teeth, restricted mouth opening, stretching or cracking at the corners of the mouth or discoloration of the skin may occur postoperatively. These are temporary conditions that will improve as healing progresses. As a result of the surgery your bite will feel off, this is normal. Your lower and upper lip will also feel numb as a result of the surgery; over time this will subside. EMERGENCIES: In case of profuse bleeding, uncontrolled pain, persistent nausea or abnormal elevation of temperature, if you have any questions about these instructions or your surgery please call our office or Dr. Lopez cell phone. Our goal is to make this procedure as safe and pleasant as possible. Email Dr. Cruz---[email or web address] Phone Dr. Cruz after hours and weekends, Phone (office) [phone] Pending Studies at Discharge: No Stand-Alone Forms: My [facility] [employer]Flat, Smoking Cessation Medications and DC Order Prescriptions: New hydrocodone-acetaminophen 7.5-325 mg/15 mL Solution 10 ml PO Q6H PRN (Reason: pain) Qty: 120 0RF Continued ondansetron HCl 8 mg tablet 8 mg PO Q8H PRN (Reason: nausea and vomiting) Qty: 10 0RF chlorhexidine gluconate [Peridex] 0.12 % mouthwash 15 ml mucous membrane BID Qty: 473 0RF candesartan 8 mg tablet 8 mg PO BID tamsulosin [Flomax] 0.4 mg capsule 0.4 mg PO QAM acetaminophen [Tylenol] 325 mg Tablet 325 mg PO UD PRN (Reason: Pain) amoxicillin-pot clavulanate 875-125 mg tablet 1 tab PO Q12H Qty: 14 0RF atorvastatin 10 mg Tablet 10 mg PO HS cyanocobalamin (vitamin B-12) [Vitamin B-12] 1,000 mcg Tablet 1,000 mcg PO Q2D magnesium 250 mg Tablet 250 mg PO Q2D pyridoxine (vitamin B6) [Vitamin B-6] 100 mg Tablet 100 mg PO Q2D coenzyme Q10 [CoQ-10] 100 mg Capsule 100 mg PO Q2D cholecalciferol (vitamin D3) [Vitamin D3] 50 mcg (2,000 unit) Tablet 50 mcg PO Q2D PreserVision AREDS-2 250-90-40-1 mg Capsule 1 tab PO BID lutein-zeaxanthin 20 mg- 1,000 mcg Capsule 1 cap PO Q2D Held hydrochlorothiazide 12.5 mg capsule 12.5 mg PO QAM Hold Instructions: Provider's Order Discharge Orders: Discharge Order (Routine); Ordered 04/21/24 Ordered By: Cari Murguia Admission Data Admit Date/Time: 04/14/24 00:05 Attending Provider: Cari Collins Admit Provider: Buffy De Guzman Primary Care Provider: Fernanda Atkinson Other Providers: Everett Eden; Jorge Cruz Other Interventions: Discharge Summary Assessment (RN) Last Done: 04/21/24 11:28 Hospital Stay Data Consultations 04/13/24 23:36 Consult Oromaxillofacial Surgery Routine ED Decision to Admit Stat Procedures Performed Operation Date: 04/17/24 13:10 Actual Procedures p Le Fort II(Not Applicable) - Jorge Cruz DMD Diagnostic Imagining Performed 04/13/24 22:18 CT cervical spine wo con Stat CT facial bones wo con Stat CT head/brain wo con Stat Pending Results Patient Have Any Pending Studies at Discharge: No Discharge Instructions Given to Patient (Per Discharging Provider) GENERAL POST-OPERATIVE INSTRUCTIONS FOR PATIENTS HAVING JAW SURGERY POST-OP INSTRUCTIONS BLEEDING: Will be under control by the time you leave our operating room. Some oozing or blood-tinged saliva may persist for up to 24 hours. Should excessive bleeding occur call the office or Dr. Cruz. Expect nasal oozing for a few days. This also will occur after getting up or after you shower. PAIN: Is best controlled by the medications recommended. They are most effective when taken before the local anesthesia diminishes and normal sensation returns to the area. Do not take pain pills on an empty stomach. Narcotic pain medication such as Vicodin or Percocet may cause nausea, vomiting, drowsiness, dizziness, itching or constipation. If these side effects occur, discontinue the medication. You may take an alternative over the counter pain medication (Tylenol or Motrin) as necessary or call our office for assistance. SWELLING: May occur immediately and increase gradually over 24-48 hours. Swelling from the surgical procedure will maximize at 48-72 hours. Ice packs applied externally to the area at 20 minute intervals throughout the day of surgery may help control swelling, but only use them if advised to by our office. Sleeping with the head of bed elevated above the level of the heart for the first two post-operative nights may tend to lessen swelling. NAUSEA: May result from a general anesthetic or the drugs prescribed for pain. Drinking a small glass of a carbonated beverage will generally control mild nausea. If not controlled, call the office. The Zofran ODT may be used as instructed. DIET: Soft foods and liquids will be required for 24-48 hours following surgery. Avoid hot, spicy foods. Do not smoke. Non-chewy foods are okay if you are using the elastic bands. Follow the instruction about what to eat and how to remove and replace your bands as instructed by Dr. Cruz. ORAL HYGIENE: Should not be neglected. Edwards your teeth as usual and rinse with warm salt water after each meal beginning gently the night of surgery. Use Peridex twice a day. Other mouth rinses can be used to keep your mouth clean. ACTIVITY: Should be restricted to a minimum for the first 7 -10 days. Strenuous work or exercise may promote bleeding. If you have had a general anesthetic or sedation, we must require that you be accompanied home by a responsible adult and an adult stays with you until recovered from the effects of the anesthesia. Under no circumstances are you to drive a car for at least 24 hours. FEVER: After surgery it is normal for the body temperature to be slightly elevated for 24 hours. SIDE EFFECTS: Such as an ear ache, temporary ache of adjacent teeth, restricted mouth opening, stretching or cracking at the corners of the mouth or discoloration of the skin may occur postoperatively. These are temporary conditions that will improve as healing progresses. As a result of the surgery your bite will feel off, this is normal. Your lower and upper lip will also feel numb as a result of the surgery; over time this will subside. EMERGENCIES: In case of profuse bleeding, uncontrolled pain, persistent nausea or abnormal elevation of temperature, if you have any questions about these instructions or your surgery please call our office or Dr. Lopez cell phone. Our goal is to make this procedure as safe and pleasant as possible. Email Dr. Cruz---[email or web address] Phone Dr. Cruz after hours and weekends, Phone (office) [phone] Total Time Total Time Spent Total Time Spent (In Minutes): Greater than 30 minutes spent completing this discharge process including direct patient care, medication reconciliation, documentation, review of labs and images, and coordination of care. Coding Level of Care Code 99266 INP/OBS DISCH >30 MIN Diagnoses Extensive facial fractures S02.92XB Encounter type: initial encounter Fracture type: open Hypertension I10 Anemia D64.9 Vitamin D deficiency E55.9 Arrhythmia I49.9
--- NOTE | 2024-04-26 21:31 | Operative Report ---
PG Post Operative Report Pre & Post Diagnosis Operation Date: 04/17/24 13:10 Pre-Op Diagnosis: Facial Fracture Post-Op Diagnosis: Facial Fracture I identified the patient and participated in the time-out.: Yes Procedure Operation Date: 04/17/24 13:10 Actual Procedures p Le Fort II(Not Applicable) - Jorge Cruz DMD Surgeon Jorge Cruz DMD Jackscrew Man none Estimated Blood Loss 15 Findings Consistent with Post-Op Diagnosis Specimens none Drains none Anesthesia Type General Complications none Disposition Accompanied Patient To Recovery: Yes Indications Displaced Lefort II Complex nasal mucosal and cartage laceration Description of Procedure Diagnoses Open Le Fort II fracture with routine healing, subsequent encounter S02.412D Contaminated complex laceration of nose S01.21XA CPT Codes COMPLEX REPAIR EYELID/NOSE/EAR/LIP 1.1-2.5 CM - 90285 ([id number]) OPN TX NASOMAX COMP FX MULTPLE OPEN APPROACHES/LEFORT II - 70495 ([id number] Pre-Op Diagnosis: Lefort II fracture opened , Nasal laceration of cartage and mucosa Post-Op Diagnosis: Lefort II fracture opened , Nasal laceration of cartage and mucosa Diagnosis ICD 10 CPT LEFORT II - S02.412D 81806 [id number] COMPLEX REPAIR EYELID/NOSE/EAR/LIP 1.1-2.5 CM - S01.21XA 05699 [id number] p Open Reduction Internal Fixation of Maxillary (Not Applicable) - Jorge gomes DMD s Complex nasal laceration - Jorge Cruz DMD Surgeon Jorge Cruz DMD Diagnosis ICD 10 CPT Lefort II fracture, initial encounter for open fracture S02.412D 60965 [id number] Nasal laceration (complex) S01.21XA 00776 [id number] OPERATION IN DETAIL: After this patient was cleared to undergo general, The patient was placed under general anesthesia via a oral tracheal intubation. This was a very difficult intubation for the anesthesia department. Due to many missing teeth we were able to use an oral tube and still obtain adequate fixation of the upper and lower jaws. After an appropriate time-out was taken to ensure that we had Alec Levy in our operating room with the proper equipment. After everyone agreed, the operation began. The patient was deeply anesthetized and the tubes were secured. The patient was prepped and draped in the usual manner. Given the nature of the fracture, an open reduction approach will be used for the Lefort II and repair of the complex nasal lacerations. Repair of complex nasal mucosa, skin and septum laceration (right) S01.21XA 99228 [id number] There was a deep full thickness complex irregular laceration of the nasal tip and septum area (right). There was tissue loss and a trap door flap of devital tissue from the septum to the tip of the nose. Local anesthesia was secured. The tissue was carefully debrided of all devital tissue-mucosa and cartilage. I used a 15 blade to trim the skin, mucosa and cartilage on the nasal sill. A few strategic sutures were placed with 4-0 Vicryl. The nose was starting to take shape. The mucosal aspect was more difficult to obtain closure secondary to the tissue loss. I was able to separate the mucosal tissue from the cartage which allowed advancement of the mucosal tissue to obtain closure with 6-0 Vicryl. The skin, cartilage and mucosal now had a smooth transition with good anatomic appearance. I now turned my attention to reduction of the LeFort fracture. Open Reduction of the Maxillary LeFort II fracture CPT 45317 S02.412D 27912 [id number] I turned my attention now to the fractured maxilla. This patient has a classic LeFort II fracture with separation in the classic LeFort II fashion at the naso-frontal suture and maxilla. The naso-maxillary complex was deviated to the left with a loose maxilla and malocclusion. The maxillary segment was fractured resulting in a posterior displacement of the maxilla with open bite. There was also a fracture involving the right lateral sinus well with multi comminutions. It extended across the nasal frontal junction. To accomplish the reduction of thisLe Fort II a maxillary osteotomy incision of the soft tissue was carried out. An electrocautery instrument was used to make an incision from the 1st bicuspid area on the right side across the midline to the opposite bicuspid area. The tissues reflected in the usual manner to expose the mucoperiosteal tissue and to get good exposure of the anterior nasal spine, the roots of the maxillary anterior and posterior teeth and the piriform rim. In addition I was able to get good visualization of the left posterior maxilla and noted the the buttress was a clean fracture and would act a stable posterior vertical support and starting point. The piriform rims were also stable and with digital manipulations I was able to line of these stable bone area to start the plate stabilization of the maxilla. Once the tissue was was reflected I was able to get a good idea of the fracture anatomy and density of the bone to plan the direct fixation process. I was able to then reflect posteriorly to get good access to the pterygoid plate areas. I then spent a lot of time dissecting superior to ensure that we had good visualization of the stable bone. Once I was able to reduce the LeFort II fracture I had excellent alignment of the fracture sites. To establish a stable occlusion I was able to place Hybrid arch bars on the maxilla and mandibular bones.The arch bars were placed with KALANI Toni screws as per protocol. Once I placed the upper and lower jaws in a fixation ideal occlusion position I was able to line up the Lefort II fracture. Starting posterior I was able to bend bone plates and placed them with fixation screws. Once I was able to achieve superior stability of the fractured left segment. I was now able to plate the right piriform rim. Once the right side was completed there was no need for addition plates on the left side. The right posterior fracture was very comminuted and required a long plate from stable bone to the buttress. Now the maxilla was very stable and appeared to be in true anatomic position. I now adapted another plate across stable bone on the right side to complete the direct fixation. Once this was done the stability of the LeFort fracture was excellent. I irrigated the maxillary sinuses of any debris and/or polyps that were noted. Hemostasis was in good control.I noted that the maxilla was now positioned in its natural position. The hemostasis was in control and all bony margins were stable and in excellent position. I now removed the fixation and noted that I had a very stable maxilla regarding a reproducible occlusion The maxilla was stable and in the correct occlusion position but the maxilla was loose vertically. I now had to do an open reduction of the frontal-nasal fracture. In one of the natural horizontal nasal frontal skin fold a 15 blade was used to gain access to the naso-frontal fracture. Once the layers were cut the bone was encounter. I reflected the flap to get excellent Visualization of the Naso-Frontal separation. The maxilla and mandible were placed back into fixation. Now rotating the max/joel complex superior I was able to see that the Naso- frontal fracture was well aligned. I now bent a straight plate and placed it across the naso-frontal fracture, appropriate mono cortical screw fixation was obtained. I released the fixation and ideal stable reproducible occlusion was re established. The maxilla, mid face and nose were all in ideal position and stable. Soft tissue closure To ensure proper closure with good anatomical form, I was able to grasp the alar cartilages on both the right and left side and then using a the Vicryl suture, I was ableto perform an alar cinch technique to ensure good positioning of the lateral alar cartilages of the nose and to establish good base anatomy of the nose. Once this was done, I made sure that the nasal septum was well positioned in the midline. Being satisfied with this, I then began the V-Y closure using 4-0 Vicryl suture of the mucosal tissue starting in the midline and then closed laterally on either side to ensure an even contouring of the tissue. When all was said and done, we had excellent closure of the soft tissue with great support of the nose. The naso-frontal site was irrigated and a layer closure of the periosteum, muscle, subQ was completed with the 4 -0 Vicryl and 6-0 nylon for the skin was carried out Recovery Phase: At this time the sponge and instruments count was correct. I passed an OG tube. The patient was allowed to recover in the usual manner and then once fully recovered moved to the recovery room. Because of the excellent stability of the maxilla at the LeFort II level only light elastic fixation was needed. Post op plans: My plan is to keep the patient on a very soft diet with a modified exercise program for 4-6 weeks using the light elastics at night. Outcome: Alec was now transported in stable condition to post anesthesia recovery area. The patient tolerated the surgical procedure and anesthesia extremely well and I anticipate an uneventful postoperative recovery The patient was allowed to awake from the anesthesia. Once full awake the anesthesia tube was removed and the patient was taken to the recovery room with all vital sign stable. The patient tolerated the surgery very well. I will follow the patient in my office, Rx and instructions will be given upon discharge. I attest to the content of the Intraoperative Record and any orders documented therein. Any exceptions are noted below.
== END 2024-04-21 12:18 | disposition home or self-care (01) | DRG 141 ==
LOC: ED 21:48 → 2N 04-14 00:05 → SUATTDRO 04-14 00:05 → 2N 04-14 02:40